=== PATIENT | male | born 1955 | race Caucasian/White ===

== ENCOUNTER 2016-10-30 00:10 | Inpatient (IN) | payer MEDICAID ==
[2016-10-30] MEDS ORDERED: ONDANSETRON DISINTEGRATING 4 MG TAB ONE ×2 (00:31→03:29)
[2016-10-30] MEDS ORDERED: ONDANSETRON DISINTEGRATING 4 MG TAB PO ONE ×2 (00:52→03:53)
--- NOTE | 2016-10-30 01:53 | EDPHY ---
H & P Stated Complaint: c/o R ankle/foot pain x 2 days - Medical/Surgical History Hx Asthma: No Hx Chronic Respiratory Disease: No Hx Diabetes: No Hx Cardiac Disease: No Hx Renal Disease: No Hx Cirrhosis: No Hx Alcoholism: No Hx HIV/AIDS: No Hx Splenectomy or Spleen Trauma: No Other PMH: homless 9 years, smoker, undiagnosed HTN, stroke with R sided weakness - Social History Smoking Status: Current every day smoker Time Seen by Provider: 10/30/16 00:18 HPI/ROS: Chief complaint: Right foot and ankle pain History of present illness: This is a 61-year-old male brought to the emergency department by EMS for evaluation of right foot and ankle pain. Patient was apparently found on the ground by bystanders in when asked if he was okay he states his foot and ankle hurt. My evaluation he reports he has had pain for the last few days. He denies precipitating factors such as trauma. He denies other associated signs or symptoms such as abnormal coolness or paresthesias in the foot. No other associated signs or symptoms including no fevers, no chest pain, no shortness of breath. (Bartolo Burch) - Physical Exam Exam: General: Alert, nontoxic Skin: No lesions noted to the right lower extremity consistent with trauma Musculoskeletal: Diffuse tenderness to the ankle and foot. The rest of his legs nontender. He is moving the lower extremity well. Vascular: DP and PT pulses 2 trace leave palpable bilaterally. There Doppler did and are present bilaterally. Neurologic: Sensation appears intact as patient reports he can feel when I test is sensation (Bartolo Burch) Constitutional: Initial Vital Signs Temperature (C) 35.6 C L 10/30/16 00:15 Blood Pressure 90/68 L 10/30/16 00:15 O2 Delivery Mode Nasal Cannula O2 (L/minute) 3 Allergies/Adverse Reactions: No Known Allergies Allergy (Verified 10/30/16 00:17) Home Medications: Medication Instructions Recorded Acetaminophen [Tylenol 325mg (*)] 650 mg PO Q4 PRN #0 tab 12/29/15 Aspirin [Aspirin 81mg (*)] 81 mg PO DAILY #0 tab.chew 12/29/15 Atorvastatin Calcium [Lipitor 20 20 mg PO DAILY #0 tab 12/29/15 mg (*)] amLODIPine BESYLATE [Norvasc 5 mg 5 mg PO DAILY #0 tab 12/29/15 (*)] Medical Decision Making ED Course/Re-evaluation: Patient discussed with my secondary supervising physician Dr. Solange Dean. Patient presents to the emergency department reporting right ankle and foot pain. The lower extremity is neurovascularly intact. X-rays appear unremarkable. Ultrasound is negative for DVT. Patient is discharged home. He is asked to follow up with a primary care doctor for recheck. Return precautions are given. Patient voiced understanding and agreement with plan. ( Bartolo Burch) I assumed care of this patient from Bartolo Burch at 2:00 a.m.. Although the patient had been set up for discharge, he was noted to be mildly hypoxic and have a cough. A chest x-ray was performed and a right-sided infiltrate is visualized. At the time of my examination he is awake and alert with a loose cough. He had an episode of emesis during my interview. He reports having a recent cough. He is a smoker and states that he smokes at least 2 cigarettes daily. He does not take any medications. He has not been feeling short of breath and has not been aware of fever. [facility] He will be admitted to the hospital for supplemental oxygen, antibiotics, and further treatments as needed. DuoNeb is being administered in the emergency department at the time of this dictation. After my review of his chest x-ray and identification of right-sided pneumonia, an IV was started and blood work was drawn. His initial lactate is noted to be 6.6. This places him in the category of severe sepsis. As mentioned, this patient presented because of lower extremity pain. He had a thorough evaluation of that pain and it was expected that he would be discharged from the emergency department. However he was subsequently noted to be hypoxic and this resulted in a respiratory evaluation. This sequence of events cause some delay in the recognition of his pneumonia and severe sepsis. At 4:45 a.m. he has received over 1 L of normal saline. Repeat blood pressure is 129/90. He remains awake and alert. Repeat examination of his lungs shows them to have distant breath sounds with faint rales in the right base. No wheezes. Heart is regular. Femoral and dorsalis pedis pulses are 2+ bilaterally. Capillary refill is normal. Skin is warm and dry. Repeat lactate is 6.6. This was drawn before his IV fluid bolus had been completed. While in the emergency department he responded well to a DuoNeb, supplemental oxygen via nasal cannula, and IV fluids. (Solange Dean) Differential Diagnosis: Included but not limited to contusion, sprain or strain, bony fracture, joint dislocation, cellulitis, DVT, arterial occlusion (Bartolo Burch) - Data Points Laboratory Results: Laboratory Results 10/30/16 03:35 10/30/16 03:35 10/30/16 10/30/16 10/30/16 03:50 03:50 03:35 WBC RBC Hgb Hct MCV MCH MCHC RDW Plt Count MPV Neut % (Auto) Lymph % (Auto) [place] % (Auto) Eos % (Auto) Baso % (Auto) Nucleat RBC Rel Count Absolute Neuts (auto) Absolute Lymphs (auto) Absolute Monos (auto) Absolute Eos (auto) Absolute Basos (auto) Absolute Nucleated RBC Immature Gran % Immature Gran # PT 16.9 SEC H SEC (12.0-15.0) INR 1.37 H (0.83-1.16) APTT 28.6 SEC SEC (23.0-38.0) VBG Lactic Acid 6.6 mmol/L H mmol/L (0.7-2.1) Sodium Potassium Chloride Carbon Dioxide Anion Gap BUN Creatinine Estimated GFR Glucose Calcium Total Bilirubin Influenza Typ A,B (DFA) NEGATIVE FOR FLU (NEGATIVE) 10/30/16 10/30/16 03:35 03:35 WBC 13.20 10^3/uL H 10^3/uL (3.80-9.50) RBC 5.62 10^6/uL 10^6/uL (4.40-6.38) Hgb 16.9 g/dL g/dL (13.7-17.5) Hct 50.6 % % (40.0-51.0) MCV 90.0 fL fL (81.5-99.8) MCH 30.1 pg pg (27.9-34.1) MCHC 33.4 g/dL g/dL (32.4-36.7) RDW 13.1 % % (11.5-15.2) Plt Count 169 10^3/uL 10^3/uL (150-400) MPV 9.1 fL fL (8.7-11.7) Neut % (Auto) 86.9 % H % (39.3-74.2) Lymph % (Auto) 6.3 % L % (15.0-45.0) [place] % (Auto) 6.0 % % (4.5-13.0) Eos % (Auto) 0.1 % L % (0.6-7.6) Baso % (Auto) 0.2 % L % (0.3-1.7) Nucleat RBC Rel Count 0.0 % % (0.0-0.2) Absolute Neuts (auto) 11.48 10^3/uL H 10^3/uL (1.70-6.50) Absolute Lymphs (auto) 0.83 10^3/uL L 10^3/uL (1.00-3.00) Absolute Monos (auto) 0.79 10^3/uL 10^3/uL (0.30-0.80) Absolute Eos (auto) 0.01 10^3/uL L 10^3/uL (0.03-0.40) Absolute Basos (auto) 0.02 10^3/uL 10^3/uL (0.02-0.10) Absolute Nucleated RBC 0.00 10^3/uL 10^3/uL (0-0.01) Immature Gran % 0.5 % % (0.0-1.1) Immature Gran # 0.07 10^3/uL 10^3/uL (0.00-0.10) PT INR APTT VBG Lactic Acid Sodium 141 mEq/L mEq/L (134-144) Potassium 3.9 mEq/L mEq/L (3.5-5.2) Chloride 98 mEq/L mEq/L (97-110) Carbon Dioxide 26 mEq/l mEq/l (22-31) Anion Gap 17 mEq/L H mEq/L (8-16) BUN 34 mg/dL H mg/dL (7-23) Creatinine 1.3 mg/dL mg/dL (0.7-1.3) Estimated GFR 57 Glucose 192 mg/dL H mg/dL (70-100) Calcium 9.6 mg/dL mg/dL (8.5-10.4) Total Bilirubin 1.6 mg/dL H mg/dL (0.1-1.4) Influenza Typ A,B (DFA) Medications Given: Discontinued Medications Albuterol/Ipratropium (Duoneb) 3 ml IH EDNOW ONE Stop: 10/30/16 03:32 Last Admin: 10/30/16 03:57 Dose: 3 ml Sodium Chloride (Ns) 1,000 mls @ 0 mls/hr IV ONCE ONE PRN Reason: Wide Open Stop: 10/30/16 03:32 Last Admin: 10/30/16 03:50 Dose: 1,000 mls Azithromycin 500 mg/ Dextrose 255 mls @ 255 mls/hr IV EDNOW ONE PRN Reason: Protocol Stop: 10/30/16 05:03 Last Admin: 10/30/16 05:30 Dose: 255 mls Ceftriaxone Sodium/Dextrose (Rocephin 1 Gm (Premix)) 50 mls @ 100 mls/hr IV EDNOW ONE PRN Reason: Protocol Stop: 10/30/16 04:33 Last Admin: 10/30/16 04:45 Dose: 50 mls Sodium Chloride (Ns) 1,800 mls @ 3,600 mls/hr 30 ml/kg infuse over 30 min ( 1800 ml) IV EDNOW ONE Stop: 10/30/16 05:14 Last Admin: 10/30/16 03:50 Dose: 1,800 mls Ondansetron HCl (Zofran Odt) 4 mg PO EDNOW ONE Stop: 10/30/16 00:53 Last Admin: 10/30/16 00:35 Dose: 4 mg Ondansetron HCl (Zofran Odt) 4 mg PO EDNOW ONE Stop: 10/30/16 03:54 Last Admin: 10/30/16 03:45 Dose: 4 mg Departure - Departure Disposition: [facility] Inpatient Acute Clinical Impression: Right ankle pain Qualifiers: Chronicity: acute Qualified Code(s): M25.571 - Pain in right ankle and joints of right foot Pneumonia Qualifiers: Pneumonia type: due to unspecified organism Laterality: right Lung location: lower lobe of lung Qualified Code(s): J18.1 - Lobar pneumonia, unspecified organism Condition: Good
[2016-10-30] MEDS ORDERED: IPRATROPIUM/ALBUTEROL 3 ML DEYVIAL IH ONE (03:31)
[2016-10-30] MEDS ORDERED: NS 1,000 ML IV ONE (03:31)
[2016-10-30 03:46] LABS: % IMMATURE GRANULYOCYTES 0.5 % (0.0-1.1); ABSOLUTE IMMATURE GRANULOCYTES 0.07 10^3/uL (0.00-0.10); ADD DIFF? NO; ADD MORPH? NO; ADD SCAN? NO; ATYPICAL LYMPHOCYTE FLAG 10 (0-99); FRAGMENT RBC FLAG 0 (0-99); HEMATOCRIT 50.6 % (40.0-51.0); HEMOGLOBIN 16.9 g/dL (13.7-17.5); LEFT SHIFT FLG 0 (0-99); LIPEMIA HEMOLYSIS FLAG 80 (0-99); MEAN CELL HEMOGLOBIN 30.1 pg (27.9-34.1); MEAN CELL HEMOGLOBIN CONCENTR. 33.4 g/dL (32.4-36.7); MEAN PLATELET VOLUME 9.1 fL (8.7-11.7); PLATELET CLUMPS FLAG 0 (0-99); PLATELET COUNT 169 10^3/uL (150-400); RED BLOOD CELL COUNT 5.62 10^6/uL (4.40-6.38); RED CELL DISTRIBUTION WIDTH 13.1 % (11.5-15.2)
[2016-10-30 03:55] LABS: INR 1.37 (0.83-1.16); PROTIME(PATIENT) 16.9 SEC (12.0-15.0)
[2016-10-30 03:56] LABS: ANION GAP 17 mEq/L (8-16); APTT 28.6 SEC (23.0-38.0); BILIRUBIN,TOTAL 1.6 mg/dL (0.1-1.4); CALCIUM 9.6 mg/dL (8.5-10.4); CARBON DIOXIDE 26 mEq/l (22-31); CHLORIDE 98 mEq/L (97-110); CREATININE 1.3 mg/dL (0.7-1.3); GLOMERULAR FILTRATION RATE 57; GLUCOSE 192 mg/dL (70-100); POTASSIUM 3.9 mEq/L (3.5-5.2); SODIUM 141 mEq/L (134-144)
[2016-10-30] MEDS ORDERED: AZITHROMYCIN IV 500 MG in D5W 250 ML IV ONE (04:04)
[2016-10-30] MEDS ORDERED: ALBUTEROL 3 ML DEYVIAL IH PRN (04:14)
[2016-10-30] MEDS ORDERED: ONDANSETRON 4 MG/2 ML VIAL IVP PRN (04:14)
[2016-10-30] MEDS ORDERED: ONDANSETRON DISINTEGRATING 4 MG TAB PO PRN (04:14)
[2016-10-30] MEDS ORDERED: ACETAMINOPHEN 325 MG TAB PO PRN (04:14)
--- NOTE | 2016-10-30 04:29 | PDGENHP ---
History and Physical - Chief Complaint R foot pain - History of Present Illness Patient is a 61 year old, homeless male with a history of CVA with residual R sided paresis, active tobacco use, who presented to the ED initially with R lower extremity/foot pain. Apparently, EMS was called for him after he was found on the ground in the [facility], complaining of R foot pain, which is why he was brought to the ED. In addition, he also reports shortness of breath, productive cough over the past 4-6 days, associated with chills. He also reports 1-2 episodes of vomiting and diarrhea, nonbloody/nonbilious. He denies any chest pain, headache, dizziness or loss of consciousness. On arrival to the ED, patient was slightly hypothermic, borderline hypotensive and slightly hypoxic on room air. Work up for his foot pain, including RLE doppler and x-ray were unremarkable. Given his hypoxia, cxr and labs were then also ordered. CXR revealed RLL/RML infiltrate. Labs showed leukocytosis, elevated lactic acid and elevated bun/cr. Sepsis protocol was initiated at this time, he was cultured, given IVF bolus and initiated on IV antibiotics. History Information - Allergies/Home Medication List Allergies/Adverse Reactions: No Known Allergies Allergy (Verified 10/30/16 00:17) I have personally reviewed and updated: family history, medical history, social history, surgical history - Past Medical History Additional medical history: CVA with residual partial R hemiparesis - Surgical History Additional surgical history: R elbow surgery - Family History Positive for: non-pertinent - Social History Smoking Status: Current every day smoker (5 cigarettes/day, x 40 years) Alcohol Use: None Drug Use: None Additional social history: Patient is homeless, does not use long term system. Originally from [place], living in [place] for > 40 years. Review of Systems ROS: 10pt was reviewed & negative except for what was stated in HPI & below Physical Exam Temp Pulse Resp BP Pulse Ox 36 C 99 20 107/80 94 10/30/16 02:52 10/30/16 04:00 10/30/16 04:00 10/30/16 04:00 10/30/16 04:00 Constitutional: not in pain, chronically ill appearing, unkempt, cachectic Eyes: PERRL, anicteric sclera, EOMI Ears, Nose, Mouth, Throat: hearing normal, ears appear normal, no oral mucosal ulcers, dry mucous membranes Cardiovascular: regular rate and rhythym, no murmur, rub, or gallop, pulses symmetric bilaterally, No JVD, No edema Peripheral Pulses: 2+: dorsalis-pedis (R), dorsalis-pedis (L) Respiratory: no respiratory distress, no rales or rhonchi, bronchial breath sounds (in R lung barker) Gastrointestinal: normoactive bowel sounds, soft, non-tender abdomen, no palpable masses, No guarding, No rebound, No distension Genitourinary: no bladder fullness, no bladder tenderness Skin: warm, normal color, no rashes or abrasions, no fluctuance, no induration, No mottled Musculoskeletal: no muscle tenderness, no joint effusions Neurologic: AAOx3, sensation intact bilaterally, other (RUE 0/5 strenght; RLE: 3 /5 strength ) Psychiatric: interacting appropriately, not anxious, not encephalopathic, thought process linear Lab Data & Imaging Review 10/30/16 03:35 10/30/16 03:35 WBC 13.20 10^3/uL (3.80-9.50) H 10/30/16 03:35 RBC 5.62 10^6/uL (4.40-6.38) 10/30/16 03:35 Hgb 16.9 g/dL (13.7-17.5) 10/30/16 03:35 Hct 50.6 % (40.0-51.0) 10/30/16 03:35 MCV 90.0 fL (81.5-99.8) 10/30/16 03:35 MCH 30.1 pg (27.9-34.1) 10/30/16 03:35 MCHC 33.4 g/dL (32.4-36.7) 10/30/16 03:35 RDW 13.1 % (11.5-15.2) 10/30/16 03:35 Plt Count 169 10^3/uL (150-400) 10/30/16 03:35 MPV 9.1 fL (8.7-11.7) 10/30/16 03:35 Neut % (Auto) 86.9 % (39.3-74.2) H 10/30/16 03:35 Lymph % (Auto) 6.3 % (15.0-45.0) L 10/30/16 03:35 [place] % (Auto) 6.0 % (4.5-13.0) 10/30/16 03:35 Eos % (Auto) 0.1 % (0.6-7.6) L 10/30/16 03:35 Baso % (Auto) 0.2 % (0.3-1.7) L 10/30/16 03:35 Nucleat RBC Rel Count 0.0 % (0.0-0.2) 10/30/16 03:35 Absolute Neuts (auto) 11.48 10^3/uL (1.70-6.50) H 10/30/16 03:35 Absolute Lymphs (auto) 0.83 10^3/uL (1.00-3.00) L 10/30/16 03:35 Absolute Monos (auto) 0.79 10^3/uL (0.30-0.80) 10/30/16 03:35 Absolute Eos (auto) 0.01 10^3/uL (0.03-0.40) L 10/30/16 03:35 Absolute Basos (auto) 0.02 10^3/uL (0.02-0.10) 10/30/16 03:35 Absolute Nucleated RBC 0.00 10^3/uL (0-0.01) 10/30/16 03:35 Immature Gran % 0.5 % (0.0-1.1) 10/30/16 03:35 Immature Gran # 0.07 10^3/uL (0.00-0.10) 10/30/16 03:35 PT 16.9 SEC (12.0-15.0) H 10/30/16 03:35 INR 1.37 (0.83-1.16) H 10/30/16 03:35 APTT 28.6 SEC (23.0-38.0) 10/30/16 03:35 VBG Lactic Acid 6.6 mmol/L (0.7-2.1) H 10/30/16 03:50 Sodium 141 mEq/L (134-144) 10/30/16 03:35 Potassium 3.9 mEq/L (3.5-5.2) 10/30/16 03:35 Chloride 98 mEq/L (97-110) 10/30/16 03:35 Carbon Dioxide 26 mEq/l (22-31) 10/30/16 03:35 Anion Gap 17 mEq/L (8-16) H 10/30/16 03:35 BUN 34 mg/dL (7-23) H 10/30/16 03:35 Creatinine 1.3 mg/dL (0.7-1.3) 10/30/16 03:35 Estimated GFR 57 10/30/16 03:35 Glucose 192 mg/dL (70-100) H 10/30/16 03:35 Calcium 9.6 mg/dL (8.5-10.4) 10/30/16 03:35 Total Bilirubin 1.6 mg/dL (0.1-1.4) H 10/30/16 03:35 Influenza Typ A,B (DFA) NEGATIVE FOR FLU (NEGATIVE) 10/30/16 03:50 Visualized and Interpreted Chest x-ray results: Yes Chest X-Ray results: infiltrate (RM and RL lobe) Visualized and Interpreted imaging results: Yes Interpretation: RLE x-ray: no obvious fracture. RLE doppler: no dvt Assessment & Plan Assessment: Patient is a 61 year old homeless male with prior history of CVA with residual R hemiparesis, presented to the ED with complaint of RLE pain. ED evaluation also reveals septic shock secondary to acute bacterial pneumonia. Plan: # septic shock secondary to community acquired pneumonia On presentation, patient was hypothermic, with leukocytosis, with cxr revealing infiltrate concerning for pneumonia. Given lactic acid of 6.6, elevated bilirubin greater than 1.5, patient meets criteria for septic shock. He was initiated on the 30cc/kg IVF bolus, was cultured and initiated on ceftriaxone and azithromycin for coverage of community acquired pneumonia. Rapid flu swab is negative and UA is also pending. Will repeat lactic acid after initiate fluid bolus. # acute hypoxic respiratory failure Likely related to acute pneumonia, described above. Responded well to supplemental O2 via nasal cannula. Patient also has a long standing smoking history, so will provide nebs prn. # R lower extremity pain Patient denies trauma to the extremity, reports chronic paresis secondary to a previous CVA. X-ray and doppler were negative for any acute pathology, patient has strong peripheral pulses and sensation is intact. Will cont to monitor and provide prn pain relief. # dispo: admit to inpatient service for > 2 [place] stay # gen: regular diet DVT ppx: lovenox Full code
[2016-10-30] MEDS ORDERED: NS 1,800 ML IV ONE (04:45)
[2016-10-30 04:59] LABS: LACGHOST ORDER
--- NOTE | 2016-10-30 05:54 | CPEKG ---
Heart Rate: 99 RR Interval: 606 P-R Interval: 144 QRSD Interval: 88 QT Interval: 388 QTC Interval: 498 P [place]: 83 QRS [place]: 84 T Wave [place]: 63 EKG Severity - BORDERLINE ECG - EKG Impression: SINUS RHYTHM EKG Impression: BORDERLINE PROLONGED QT INTERVAL Electronically Signed By: Solange Dean 30-Oct-2016 07:01:03
[2016-10-30] MEDS: IPRATROPIUM/ALBUTEROL 3 ML DEYVIAL IH SCH ×4 (06:27→20:17)
[2016-10-30] MEDS: NS 1,000 ML IV SCH ×2 (07:37→16:51)
[2016-10-30] MEDS: ENOXAPARIN 40 MG/0.4 ML SYR SC SCH (09:28)
--- NOTE | 2016-10-30 12:09 | HOSPPROG ---
Hospitalist Progress Note Assessment/Plan: Patient is a 61 year old homeless male with prior history of CVA with residual R hemiparesis, presented to the ED with complaint of RLE pain. ED evaluation also reveals septic shock secondary to acute bacterial pneumonia. Plan: # septic shock secondary to community acquired pneumonia On presentation, patient was hypothermic, with leukocytosis, with cxr revealing infiltrate concerning for pneumonia. Given lactic acid of 6.6, elevated bilirubin greater than 1.5, patient meets criteria for septic shock. He was initiated on the 30cc/kg IVF bolus, was cultured and initiated on ceftriaxone and azithromycin for coverage of community acquired pneumonia. Rapid flu swab is negative and UA is also pending. Will repeat lactic acid after initiate fluid bolus. # acute hypoxic respiratory failure Likely related to acute pneumonia, described above. Responded well to supplemental O2 via nasal cannula. Patient also has a long standing smoking history, so will provide nebs prn. # R lower extremity pain Patient denies trauma to the extremity, reports chronic paresis secondary to a previous CVA. X-ray and doppler were negative for any acute pathology, patient has strong peripheral pulses and sensation is intact. Will cont to monitor and provide prn pain relief. # dispo: admit to inpatient service for > 2 [place] stay # gen: regular diet DVT ppx: lovenox Full code Subjective: Still having some discomfort. No other issues. Objective: Vital Signs Temp Pulse Resp BP Pulse Ox 36.9 C 91 18 96/72 L 93 10/30/16 11:24 10/30/16 11:24 10/30/16 11:24 10/30/16 11:24 10/30/16 11:24 10/29/16 10/30/16 10/31/16 05:59 05:59 05:59 Intake Total 2049 Output Total 180 Balance 2049 -180 PT 16.9 SEC (12.0-15.0) H 10/30/16 03:35 INR 1.37 (0.83-1.16) H 10/30/16 03:35 - Physical Exam Constitutional: no apparent distress, chronically ill appearing, unkempt Ears, Nose, Mouth, Throat: hearing normal, ears appear normal Cardiovascular: No JVD, No tachycardia Respiratory: no respiratory distress Gastrointestinal: No tenderness, No ascites Skin: warm, normal color Musculoskeletal: no joint effusions, generalized weakness Neurologic: AAOx3 Psychiatric: not anxious, not encephalopathic ICD10 Worksheet Patient Problems: Problems Problem Status Onset Stroke Acute Right ankle pain Acute Pneumonia Acute
[2016-10-30 12:12] LABS: COLOR ORANGE; LEUKOCYTE ESTERASE,URINE NEGATIVE (NEGATIVE); NITRITE,URINE NEGATIVE (NEGATIVE)
[2016-10-30 12:14] LABS: BACTERIA TRACE /hpf (NONE SEEN); HYALINE CASTS 25-50 /lpf (0-1); MUCUS TRACE /lpf (NONE-1+)
[2016-10-31 04:41] LABS: % IMMATURE GRANULYOCYTES 0.5 % (0.0-1.1); ABSOLUTE IMMATURE GRANULOCYTES 0.05 10^3/uL (0.00-0.10); ADD DIFF? NO; ADD MORPH? NO; ADD SCAN? NO; ATYPICAL LYMPHOCYTE FLAG 0 (0-99); FRAGMENT RBC FLAG 0 (0-99); HEMATOCRIT 42.6 % (40.0-51.0); HEMOGLOBIN 14.6 g/dL (13.7-17.5); LEFT SHIFT FLG 0 (0-99); LIPEMIA HEMOLYSIS FLAG 90 (0-99); MEAN CELL HEMOGLOBIN 31.1 pg (27.9-34.1); MEAN CELL HEMOGLOBIN CONCENTR. 34.3 g/dL (32.4-36.7); MEAN CELL VOLUME 90.8 fL (81.5-99.8); MEAN PLATELET VOLUME 9.9 fL (8.7-11.7); PLATELET CLUMPS FLAG 10 (0-99); PLATELET COUNT 139 10^3/uL (150-400); RED BLOOD CELL COUNT 4.69 10^6/uL (4.40-6.38); RED CELL DISTRIBUTION WIDTH 13.4 % (11.5-15.2)
[2016-10-31 05:00] LABS: ALANINE AMINOTRANSFERASE 250 IU/L (21-72); ALBUMIN 2.5 g/dL (3.5-5.0); ALKALINE PHOSPHATASE 136 IU/L (38-126); ANION GAP 7 mEq/L (8-16); ASPARTATE AMINOTRANSFERASE 178 IU/L (17-59); BILIRUBIN,TOTAL 0.8 mg/dL (0.1-1.4); BILIRUBIN-CONJUGATED 0.4 mg/dL (0.0-0.5); BILIRUBIN-UNCONJUGATED 0.4 mg/dL (0.0-1.1); CARBON DIOXIDE 22 mEq/l (22-31); CHLORIDE 108 mEq/L (97-110); CREATININE 0.7 mg/dL (0.7-1.3); GLOMERULAR FILTRATION RATE > 60; GLUCOSE 108 mg/dL (70-100); SODIUM 137 mEq/L (134-144); TOTAL PROTEIN 5.2 g/dL (6.3-8.2)
[2016-10-31] MEDS: IPRATROPIUM/ALBUTEROL 3 ML DEYVIAL IH SCH ×4 (05:22→21:03)
[2016-10-31] MEDS: NS 1,000 ML IV SCH ×2 (05:53→16:10)
[2016-10-31] MEDS: AZITHROMYCIN IV 500 MG in D5W 250 ML IV SCH (08:19)
[2016-10-31] MEDS ORDERED: AZITHROMYCIN IV 500 MG in D5W 250 ML IV SCH (09:00)
[2016-10-31] MEDS: ENOXAPARIN 40 MG/0.4 ML SYR SC SCH (10:11)
--- NOTE | 2016-10-31 13:29 | HOSPPROG ---
Hospitalist Progress Note Assessment/Plan: Patient is a 61 year old homeless male with prior history of CVA with residual R hemiparesis, presented to the ED with complaint of RLE pain. ED evaluation also reveals septic shock secondary to acute bacterial pneumonia. Plan: # septic shock secondary to community acquired pneumonia -hypothermic, with leukocytosis, with cxr revealing infiltrate concerning for pneumonia. Given lactic acid of 6.6, elevated bilirubin greater than 1.5, patient meets criteria for septic shock. He was initiated on the 30cc/kg IVF bolus, was cultured and initiated on ceftriaxone and azithromycin for coverage of community acquired pneumonia. Rapid flu swab is negative and UA is neg. Will repeat lactic acid after initiate fluid bolus. #Positive BC staph coag anticipate contaminate but will follow only one bottle so far # acute hypoxic respiratory failure Likely related to acute pneumonia, described above. Responded well to supplemental O2 via nasal cannula. Patient also has a long standing smoking history, so will provide nebs prn. #Elevated LFT recheck in am add hep panel # R lower extremity pain Patient denies trauma to the extremity, reports chronic paresis secondary to a previous CVA. X-ray and doppler were negative for any acute pathology, patient has strong peripheral pulses and sensation is intact. Will cont to monitor and provide prn pain relief. obtain MRI of brain to assure that past CVA has not progressed. consider runoff study if MRI normal # Homeless pt agreeable to rehab reviewed with RN and CM # dispo: unclear will need Rehab cont PT/OT # gen: regular diet DVT ppx: lovenox Full code Subjective: C/O right foot pain. Feeling better then yesterday. No other specific issues. Objective: Vital Signs Temp Pulse Resp BP Pulse Ox 36.4 C 100 18 106/63 95 10/31/16 11:22 10/31/16 11:22 10/31/16 11:22 10/31/16 11:22 10/31/16 11:22 Microbiology 10/31/16 05:07 - Final Sputum, Expectorated Laboratory Results 10/31/16 04:25 10/31/16 04:25 10/30/16 10/31/16 11/01/16 05:59 05:59 05:59 Intake Total 2049 1785 200 Output Total 755 200 Balance 2049 1030 0 PT 16.9 SEC (12.0-15.0) H 10/30/16 03:35 INR 1.37 (0.83-1.16) H 10/30/16 03:35 - Physical Exam Constitutional: chronically ill appearing, unkempt, cachectic Eyes: PERRL, anicteric sclera, EOMI Ears, Nose, Mouth, Throat: moist mucous membranes, hearing normal, ears appear normal Cardiovascular: tachycardia, No JVD, No edema Respiratory: no respiratory distress, reduced air movement, expiratory wheeze Gastrointestinal: No tenderness, No ascites, No guarding Skin: warm, normal color, No erythema Musculoskeletal: pain with ROM, muscular tenderness, generalized weakness Neurologic: AAOx3 Psychiatric: not anxious, not encephalopathic, thought process linear ICD10 Worksheet Patient Problems: Problems Problem Status Onset Stroke Acute Right ankle pain Acute Pneumonia Acute
[2016-10-31] MEDS: HYDROCODONE/APAP 5/325 TAB PO PRN (19:57)
[2016-11-01] MEDS: NS 1,000 ML IV SCH ×2 (04:37→18:24)
[2016-11-01] MEDS: HYDROCODONE/APAP 5/325 TAB PO PRN (04:37)
[2016-11-01 05:16] LABS: ALBUMIN 2.5 g/dL (3.5-5.0); BILIRUBIN,TOTAL 1.1 mg/dL (0.1-1.4); BILIRUBIN-CONJUGATED 0.4 mg/dL (0.0-0.5); BILIRUBIN-UNCONJUGATED 0.7 mg/dL (0.0-1.1); TOTAL PROTEIN 5.2 g/dL (6.3-8.2)
[2016-11-01] MEDS: IPRATROPIUM/ALBUTEROL 3 ML DEYVIAL IH SCH ×4 (06:03→20:59)
[2016-11-01] MEDS: AZITHROMYCIN IV 500 MG in D5W 250 ML IV SCH (08:16)
[2016-11-01] MEDS: ENOXAPARIN 40 MG/0.4 ML SYR SC SCH (08:17)
--- NOTE | 2016-11-01 11:16 | HOSPPROG ---
Hospitalist Progress Note Assessment/Plan: Patient is a 61 year old homeless male with prior history of CVA with residual R hemiparesis, presented to the ED with complaint of RLE pain. ED evaluation also reveals septic shock secondary to acute bacterial pneumonia. Plan: # septic shock secondary to community acquired pneumonia -hypothermic, with leukocytosis, with cxr revealing infiltrate concerning for pneumonia. Given lactic acid of 6.6, elevated bilirubin greater than 1.5, patient meets criteria for septic shock. He was initiated on the 30cc/kg IVF bolus, was cultured and initiated on ceftriaxone and azithromycin for coverage of community acquired pneumonia. Rapid flu swab is negative and UA is neg. lactic acid normal. #Positive BC staph coag contaminate # acute hypoxic respiratory failure Likely related to acute pneumonia, described above. Responded well to supplemental O2 via nasal cannula. Patient also has a long standing smoking history, so will provide nebs prn. #Elevated LFT stable, follow hep panel negative # R lower extremity pain Patient denies trauma to the extremity, reports chronic paresis secondary to a previous CVA. X-ray and doppler were negative for any acute pathology, patient has strong peripheral pulses and sensation is intact. Will cont to monitor and provide prn pain relief. MRI of brain, past CVA has not progressed. PT eval # Homeless pt agreeable to rehab reviewed with RN and CM # dispo: unclear will need Rehab cont PT/OT # gen: regular diet DVT ppx: lovenox Full code Subjective: Feeling ok. Still having right leg discomfort. No other specific issues. Objective: Vital Signs Temp Pulse Resp BP Pulse Ox 37.1 C 98 18 144/91 H 92 11/01/16 07:43 11/01/16 10:41 11/01/16 10:41 11/01/16 07:43 11/01/16 10:41 Microbiology 10/31/16 05:07 - Final Sputum, Expectorated Laboratory Results 10/31/16 04:25 10/31/16 04:25 10/31/16 11/01/16 11/02/16 05:59 05:59 05:59 Intake Total 1785 540 Output Total 755 550 Balance 1030 -10 PT 16.9 SEC (12.0-15.0) H 10/30/16 03:35 INR 1.37 (0.83-1.16) H 10/30/16 03:35 - Physical Exam Constitutional: chronically ill appearing, unkempt Eyes: PERRL, anicteric sclera Ears, Nose, Mouth, Throat: moist mucous membranes, No oral thrush Cardiovascular: No JVD, No edema Respiratory: no respiratory distress, rhonchi Gastrointestinal: No tenderness, No ascites Skin: warm, normal color Musculoskeletal: muscular tenderness, abnormal gait, generalized weakness Neurologic: AAOx3 Psychiatric: not anxious, not encephalopathic ICD10 Worksheet Patient Problems: Problems Problem Status Onset Stroke Acute Right ankle pain Acute Pneumonia Acute
[2016-11-02] MEDS: IPRATROPIUM/ALBUTEROL 3 ML DEYVIAL IH SCH ×4 (04:06→20:57)
[2016-11-02] MEDS: ENOXAPARIN 40 MG/0.4 ML SYR SC SCH (08:52)
[2016-11-02] MEDS: AZITHROMYCIN IV 500 MG in D5W 250 ML IV SCH (08:52)
--- NOTE | 2016-11-02 08:56 | HOSPPROG ---
Hospitalist Progress Note Assessment/Plan: Patient is a 61 year old homeless male with prior history of CVA with residual R hemiparesis, presented to the ED with complaint of RLE pain. ED evaluation also reveals septic shock secondary to acute bacterial pneumonia. Today is my first encounter with the patient, chart reviewed. # septic shock secondary to community acquired pneumonia reviewed chest xray with radiologist/ concern for aspiration will ask ST to further evaluate on ceftriaxone and azithro was hypothermic/elevated lactic acid level on admission (since resolved) #Left lung pulmonary nodules/non calcified needs a CT scan of his chest when improved reviewed this with the patientient #Positive BC staph coag contaminate # acute hypoxic respiratory failure multifactorial/ due to pna, hx of smoking #Elevated LFT hepatitis panel negative repeat LFT's in a.m. # R lower extremity pain chronic paresis xray and doppler show nothing acute #Nicotine dependence smokes approximately 5-10 cigarettes/day #Homelessness from the [facility] has no family locally CM working on placement #Dispo: pending/ needs aggressive pulm rehab, needs further eval for aspiration by ST, repeat labs in a.m. Subjective: Gabe feels poorly, very short of breath. Objective: Vital Signs Temp Pulse Resp BP Pulse Ox 36.9 C 100 24 H 116/74 93 11/01/16 23:25 11/02/16 04:07 11/02/16 04:07 11/01/16 23:25 11/02/16 04:07 Microbiology 10/31/16 05:07 - Final Sputum, Expectorated Laboratory Results 10/31/16 04:25 10/31/16 04:25 11/01/16 11/02/16 11/03/16 05:59 05:59 05:59 Intake Total 540 1402.1 250 Output Total 550 1325 200 Balance -10 77.1 50 PT 16.9 SEC (12.0-15.0) H 10/30/16 03:35 INR 1.37 (0.83-1.16) H 10/30/16 03:35 - Physical Exam Constitutional: chronically ill appearing, unkempt, other (thin) Eyes: PERRL Ears, Nose, Mouth, Throat: hearing normal Cardiovascular: regular rate and rhythym Respiratory: no respiratory distress, reduced air movement (right middle lobe down/ diff to hear good air movement), No respiratory distress Gastrointestinal: normoactive bowel sounds Skin: warm Musculoskeletal: no muscle tenderness Neurologic: AAOx3 Psychiatric: interacting appropriately ICD10 Worksheet Patient Problems: Problems Problem Status Onset Pneumonia Acute Right ankle pain Acute Stroke Acute
[2016-11-02] MEDS: NS 1,000 ML IV SCH ×2 (14:19→21:07)
[2016-11-02] MEDS: HYDROCODONE/APAP 5/325 TAB PO PRN (19:40)
[2016-11-02] MEDS: guaiFENesin 600 MG TAB.ER PO SCH (19:40)
[2016-11-03] MEDS: HYDROCODONE/APAP 5/325 TAB PO PRN ×2 (04:56→14:36)
[2016-11-03] MEDS: NS 1,000 ML IV SCH ×2 (04:56→18:23)
[2016-11-03 05:34] LABS: % IMMATURE GRANULYOCYTES 0.6 % (0.0-1.1); ABSOLUTE IMMATURE GRANULOCYTES 0.06 10^3/uL (0.00-0.10); ADD DIFF? NO; ADD MORPH? NO; ADD SCAN? NO; ATYPICAL LYMPHOCYTE FLAG 0 (0-99); FRAGMENT RBC FLAG 0 (0-99); HEMATOCRIT 36.7 % (40.0-51.0); HEMOGLOBIN 12.9 g/dL (13.7-17.5); LEFT SHIFT FLG 10 (0-99); LIPEMIA HEMOLYSIS FLAG 90 (0-99); MEAN CELL HEMOGLOBIN 30.9 pg (27.9-34.1); MEAN CELL HEMOGLOBIN CONCENTR. 35.1 g/dL (32.4-36.7); MEAN CELL VOLUME 87.8 fL (81.5-99.8); MEAN PLATELET VOLUME 9.8 fL (8.7-11.7); PLATELET CLUMPS FLAG 0 (0-99); PLATELET COUNT 179 10^3/uL (150-400); RED BLOOD CELL COUNT 4.18 10^6/uL (4.40-6.38); RED CELL DISTRIBUTION WIDTH 13.2 % (11.5-15.2)
[2016-11-03 05:43] LABS: ALANINE AMINOTRANSFERASE 189 IU/L (21-72); ALBUMIN 2.1 g/dL (3.5-5.0); ALKALINE PHOSPHATASE 123 IU/L (38-126); ANION GAP 5 mEq/L (8-16); ASPARTATE AMINOTRANSFERASE 83 IU/L (17-59); BILIRUBIN-CONJUGATED 0.6 mg/dL (0.0-0.5); BILIRUBIN-UNCONJUGATED 0.4 mg/dL (0.0-1.1); CALCIUM 7.3 mg/dL (8.5-10.4); CARBON DIOXIDE 22 mEq/l (22-31); CHLORIDE 105 mEq/L (97-110); CREATININE 0.6 mg/dL (0.7-1.3); GLOMERULAR FILTRATION RATE > 60; GLUCOSE 83 mg/dL (70-100); POTASSIUM 3.9 mEq/L (3.5-5.2); SODIUM 132 mEq/L (134-144); TOTAL PROTEIN 4.7 g/dL (6.3-8.2)
[2016-11-03] MEDS: IPRATROPIUM/ALBUTEROL 3 ML DEYVIAL IH SCH ×4 (05:49→21:33)
[2016-11-03] MEDS: ENOXAPARIN 40 MG/0.4 ML SYR SC SCH (08:15)
[2016-11-03] MEDS: AZITHROMYCIN IV 500 MG in D5W 250 ML IV SCH (08:16)
[2016-11-03] MEDS: guaiFENesin 600 MG TAB.ER PO SCH ×2 (08:16→21:24)
--- NOTE | 2016-11-03 12:55 | HOSPPROG ---
Hospitalist Progress Note Assessment/Plan: Patient is a 61 year old homeless male with prior history of CVA with residual R hemiparesis, presented to the ED with complaint of RLE pain. ED evaluation also reveals septic shock secondary to acute bacterial pneumonia. # septic shock secondary to community acquired pneumonia reviewed chest xray with radiologist/ concern for aspiration had video swallow evaluation that was stable on ceftriaxone /dc azithro was hypothermic/elevated lactic acid level on admission (since resolved) much better today/ requiring less oxygen #Left lung pulmonary nodules/non calcified needs a CT scan of his chest when improved reviewed this with the patient # right sided weakness MRI revealed sequela of left middle cerebral infarct etiology of his weakness # back pain patient said this has been ongoing for years/ often use to crawl due to this will check xrays #Positive BC staph coag contaminate # acute hypoxic respiratory failure multifactorial/ due to pna, hx of smoking #Elevated LFT hepatitis panel negative improving # R lower extremity pain chronic paresis xray and doppler show nothing acute #Nicotine dependence smokes approximately 5-10 cigarettes/day #Homelessness from the [facility] has no family locally CM working on placement/ to go [facility] #Dispo: pending/ get back xrays for further evaluation Subjective: Chase said he is 'terrible' today/ back hurts. Says he doesn't feel better. Objective: Vital Signs Temp Pulse Resp BP Pulse Ox 37.0 C 104 H 24 H 142/78 H 96 11/03/16 07:35 11/03/16 10:53 11/03/16 10:53 11/03/16 07:35 11/03/16 10:53 Microbiology 10/31/16 05:07 - Final Sputum, Expectorated Sputum Culture - Final Laboratory Results 11/03/16 04:51 11/03/16 04:51 11/02/16 11/03/16 11/04/16 05:59 05:59 05:59 Intake Total 1402.1 2205 Output Total 1325 1600 Balance 77.1 605 PT 16.9 SEC (12.0-15.0) H 10/30/16 03:35 INR 1.37 (0.83-1.16) H 10/30/16 03:35 - Physical Exam Constitutional: unkempt, other (thin), No not in pain Eyes: PERRL Ears, Nose, Mouth, Throat: hearing normal Cardiovascular: regular rate and rhythym Respiratory: no respiratory distress, reduced air movement Gastrointestinal: normoactive bowel sounds Skin: warm Musculoskeletal: generalized weakness Neurologic: AAOx3 Psychiatric: interacting appropriately ICD10 Worksheet Patient Problems: Problems Problem Status Onset Pneumonia Acute Right ankle pain Acute Stroke Acute
[2016-11-04] MEDS: NS 1,000 ML IV SCH (01:44)
[2016-11-04] MEDS: guaiFENesin 600 MG TAB.ER PO SCH ×3 (02:01→20:58)
[2016-11-04 03:02] LABS: BASE EXCESS -0.3 mEq/L (-2.5-2.5); BICARBONATE 22 mEq/L (22-26); MEASURED OXYGEN SATURATION 92 % (92-95); PCO2 27 mmHg (34-38); PO2 58 mmHg (65-75); TCO2 22 mEq/L (23-27)
[2016-11-04] MEDS: IPRATROPIUM/ALBUTEROL 3 ML DEYVIAL IH SCH ×4 (05:41→22:13)
[2016-11-04] MEDS: ENOXAPARIN 40 MG/0.4 ML SYR SC SCH (07:56)
--- NOTE | 2016-11-04 11:01 | HOSPPROG ---
Hospitalist Progress Note Assessment/Plan: Patient is a 61 year old homeless male with prior history of CVA with residual R hemiparesis, presented to the ED with complaint of RLE pain. ED evaluation also reveals septic shock secondary to acute bacterial pneumonia. # septic shock secondary to community acquired pneumonia reviewed chest xray with radiologist/ concern for aspiration had video swallow evaluation that was stable on ceftriaxone /dc azithro even though chest xray looks worse, patient is clinically better o2 sats on room air ranging from 87-91% #Left lung pulmonary nodules/non calcified needs a CT scan of his chest when improved reviewed this with the patient # right sided weakness MRI revealed sequela of left middle cerebral infarct etiology of his weakness # back pain lumbar xray shows a subluxation patient said the pain is impacting him daily will get an MRI/ neurosurgery to see/ appreciate their involvement #Positive BC staph coag contaminate # acute hypoxic respiratory failure multifactorial/ due to pna, hx of smoking much improved #Elevated LFT hepatitis panel negative improving # R lower extremity pain chronic paresis xray and doppler show nothing acute #Nicotine dependence smokes approximately 5-10 cigarettes/day #Homelessness from the [facility] has no family locally CM working on placement/ to go to [facility] #Dispo: pending/ appreciate neurosurgery seeing Chase/MRI ordered Subjective: Chase cried when I told him that neurosugery will see him, he is c/o ongoing severe back pain impacting his ability to walk. Objective: Vital Signs Temp Pulse Resp BP Pulse Ox 37.1 C 85 20 127/87 H 95 11/04/16 08:00 11/04/16 08:00 11/04/16 08:00 11/04/16 08:00 11/04/16 08:00 Microbiology 10/30/16 04:35 Blood Culture - Final Blood Laboratory Results 11/03/16 04:51 11/03/16 04:51 11/03/16 11/04/16 11/05/16 05:59 05:59 05:59 Intake Total 2205 775 Output Total 1600 1150 200 Balance 605 -375 -200 PT 16.9 SEC (12.0-15.0) H 10/30/16 03:35 INR 1.37 (0.83-1.16) H 10/30/16 03:35 - Physical Exam Constitutional: chronically ill appearing, other (thin) Eyes: PERRL Ears, Nose, Mouth, Throat: hearing normal Cardiovascular: regular rate and rhythym Respiratory: no respiratory distress, reduced air movement (right middle lobe down) Gastrointestinal: normoactive bowel sounds Skin: warm Musculoskeletal: muscular tenderness, generalized weakness Neurologic: AAOx3 Psychiatric: interacting appropriately ICD10 Worksheet Patient Problems: Problems Problem Status Onset Pneumonia Acute Right ankle pain Acute Stroke Acute
--- NOTE | 2016-11-04 14:55 | GCON ---
[f rep st] CONSULTATION NEUROSURGICAL CONSULTATION CHIEF COMPLAINT: The patient is a 61-year-old man with right lower extremity leg pain. HISTORY OF PRESENT ILLNESS: The patient was admitted recently about 4 or 5 days ago with a right duong dy stroke. He has been worked up for this and was noted to have a several month history of right le g pain. An x-ray was ordered, and he has a grade 2 spondylolisthesis at L4-5, and Neurosurgery is n ow consulted. On further questioning from the patient, he states that he has had leg pain for quite some time. He is now weak on his whole right side due to the recent stroke but does not know much more about his back. He is homeless and was recently placed in an apartment but gets around everywh ere in a wheelchair. PAST MEDICAL AND SURGICAL HISTORY: A history of recent stroke as noted above with partial right hem iparesis, right elbow surgery. MEDICATIONS ON ADMISSION: Unknown. ALLERGIES: Drug allergies none known. FAMILY HISTORY: Noncontributory. SOCIAL HISTORY: The patient is homeless but lives in an apartment he was placed in. DIAGNOSTIC STUDIES: X-rays of the lumbosacral spine demonstrated grade 2 spondylolisthesis at the L 4-5 level. IMPRESSION/RECOMMENDATIONS: This is a 61-year-old man with a recent right upper and lower extremity body stroke (left brain) who has a long history of right lower extremity radicular pain. He has a grade 2 spondylolisthesis at L4-5, and I have already spoken with Alicia Gandara, nurse seda partida, who has ordered an MRI of the lumbosacral spine. We will follow this up and go from there. /[id number]/MODL
[2016-11-04] MEDS: ACETAMINOPHEN 500 MG TAB PO SCH ×2 (16:41→20:57)
[2016-11-04] MEDS: LIDOCAINE 5% 1 EA PATCH TD SCH (16:42)
[2016-11-04] MEDS: IBUPROFEN 200 MG TAB PO PRN (17:39)
[2016-11-04] MEDS: PATCH REMOVAL 1 EA PATCH TD SCH (21:00)
[2016-11-05] MEDS: IPRATROPIUM/ALBUTEROL 3 ML DEYVIAL IH SCH ×4 (05:56→21:00)
[2016-11-05] MEDS: IBUPROFEN 200 MG TAB PO PRN ×3 (06:13→23:56)
--- NOTE | 2016-11-05 08:24 | NEUSURGPN ---
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 NAD. Eating/drinking and voiding. No f/c/n/v/d. Objective: AAO x 3, PERRLA/EOMI no droop CN 2-12 grossly intact +lt touch 5/5 to LLE, RLE at 3+/5 c/w hx-global nonfocal Neuro Check Frequency: per routine Urinary Catheter in Place: No - Physician Discussed Patient with Dr.: Leigh Ann Neurosurgery Physical Exam - Vitals, I&O, Labs I and O 11/04/16 11/05/16 11/06/16 05:59 05:59 05:59 Intake Total 775 240 Output Total 1150 1350 Balance -375 -1110 Intake: Oral (ml) 775 240 Output: Urine (ml) 1150 1350 Urinal 1150 1350 Other: Number of Voids Urinal 2 Microbiology 10/30/16 04:35 Blood Culture - Final Blood Vital Signs Temp Pulse Resp BP Pulse Ox 36.3 C 90 16 118/74 93 11/05/16 07:48 11/05/16 07:48 11/05/16 07:48 11/05/16 07:48 11/05/16 07:48 Laboratory Results 11/03/16 04:51 11/03/16 04:51 ICD10 Worksheet Patient Problems: Problems Problem Status Onset Pneumonia Acute Right ankle pain Acute Stroke Acute
--- NOTE | 2016-11-05 08:53 | HOSPPROG ---
Hospitalist Progress Note Assessment/Plan: Patient is a 61 year old homeless male with prior history of CVA with residual R hemiparesis, presented to the ED with complaint of RLE pain. ED evaluation also reveals septic shock secondary to acute bacterial pneumonia. # septic shock secondary to community acquired pneumonia reviewed chest xray with radiologist/ concern for aspiration had video swallow evaluation that was stable on ceftriaxone even though chest xray looks worse, patient is clinically better o2 sats on room air ranging from 87-91% #Left lung pulmonary nodules/non calcified needs a CT scan of his chest when improved reviewed this with the patient # right sided weakness MRI revealed sequela of left middle cerebral infarct etiology of his weakness # back pain/severe MRI shows severe bilateral stenosis to get a steroid injection today likely need surgery in the future #Positive BC staph coag contaminate # acute hypoxic respiratory failure multifactorial/ due to pna, hx of smoking much improved #Elevated LFT hepatitis panel negative improving # R lower extremity pain chronic paresis xray and doppler show nothing acute #Nicotine dependence smokes approximately 5-10 cigarettes/day #Homelessness from the [facility] has no family locally CM working on placement/ to go [facility] #Dispo: pending/ appreciate neurosurgery seeing Chase Subjective: Chase is feeling better/ wants help w his back pain and is will to try steroid injection. Objective: Vital Signs Temp Pulse Resp BP Pulse Ox 36.3 C 90 16 118/74 93 11/05/16 07:48 11/05/16 07:48 11/05/16 07:48 11/05/16 07:48 11/05/16 07:48 Microbiology 10/30/16 04:35 Blood Culture - Final Blood Laboratory Results 11/03/16 04:51 11/03/16 04:51 11/04/16 11/05/16 11/06/16 05:59 05:59 05:59 Intake Total 775 240 Output Total 1150 1350 Balance -375 -1110 PT 16.9 SEC (12.0-15.0) H 10/30/16 03:35 INR 1.37 (0.83-1.16) H 10/30/16 03:35 - Physical Exam Constitutional: chronically ill appearing, other (thin) Eyes: PERRL Ears, Nose, Mouth, Throat: hearing normal Cardiovascular: regular rate and rhythym Respiratory: no respiratory distress, reduced air movement Gastrointestinal: normoactive bowel sounds Skin: warm Musculoskeletal: generalized weakness Neurologic: AAOx3 Psychiatric: interacting appropriately ICD10 Worksheet Patient Problems: Problems Problem Status Onset Pneumonia Acute Right ankle pain Acute Stroke Acute
[2016-11-05] MEDS: ACETAMINOPHEN 500 MG TAB PO SCH ×3 (09:37→21:47)
[2016-11-05] MEDS: guaiFENesin 600 MG TAB.ER PO SCH ×2 (09:37→21:47)
[2016-11-05] MEDS: LIDOCAINE 5% 1 EA PATCH TD SCH (09:39)
[2016-11-05] MEDS: ENOXAPARIN 40 MG/0.4 ML SYR SC SCH (12:14)
[2016-11-05] MEDS ORDERED: MIDAZOLAM 2 MG/2 ML VIAL ONE (14:14)
[2016-11-05] MEDS ORDERED: fentaNYL 100 MCG/2 ML INJ ONE (14:14)
[2016-11-05] MEDS ORDERED: TRIAMCINOLONE ACETONIDE 200 MG/5 ML MDV IM ONE (14:34)
[2016-11-05] MEDS ORDERED: IOPAMIDOL (ISOVUE-M 300) 15 ML VIAL IV ONE (14:34)
[2016-11-05] MEDS: PATCH REMOVAL 1 EA PATCH TD SCH (21:49)
[2016-11-06] MEDS: IPRATROPIUM/ALBUTEROL 3 ML DEYVIAL IH SCH ×4 (06:09→20:43)
[2016-11-06] MEDS: ENOXAPARIN 40 MG/0.4 ML SYR SC SCH (08:16)
[2016-11-06] MEDS: ACETAMINOPHEN 500 MG TAB PO SCH ×3 (08:16→21:13)
[2016-11-06] MEDS: guaiFENesin 600 MG TAB.ER PO SCH ×2 (08:16→20:09)
[2016-11-06] MEDS: LIDOCAINE 5% 1 EA PATCH TD SCH (08:17)
--- NOTE | 2016-11-06 09:13 | HOSPPROG ---
Hospitalist Progress Note Assessment/Plan: Patient is a 61 year old homeless male with prior history of CVA with residual R hemiparesis, presented to the ED with complaint of RLE pain. ED evaluation also reveals septic shock secondary to acute bacterial pneumonia. # septic shock secondary to community acquired pneumonia resolved on room air stopped iv abx ST evaluated/no aspiration #Left lung pulmonary nodules/non calcified needs a CT scan of his chest when improved reviewed this with the patient # right sided weakness MRI revealed sequela of left middle cerebral infarct etiology of his weakness # back pain/severe appreciate neurosurgery/ s/p DEBBIE to L4-L5 feels his pain is better #Positive BC staph coag contaminate # acute hypoxic respiratory failure resolved #Elevated LFT hepatitis panel negative improved # R lower extremity pain chronic paresis xray and doppler show nothing acute #Nicotine dependence smokes approximately 5-10 cigarettes/day #Homelessness from the [facility] originally #Dispo: Chase very much wants to go to the home Ishan has helped arrange ( [facility]). He has had the weakness from the CVA and has been able to care for himself somewhat on the street and has been using a wheelchair. The plan is to dc on Monday, hopefully to the housing that has been arranged. He is open to the SNF but would love to be in his own place. Subjective: Chase is concerned about his discharge. Says the steroid injection helped his back pain. Objective: Vital Signs Temp Pulse Resp BP Pulse Ox 36.4 C 85 16 149/87 H 93 11/06/16 07:44 11/06/16 07:44 11/06/16 07:44 11/06/16 07:44 11/06/16 07:44 Microbiology 10/31/16 20:35 Blood Culture - Final Blood 10/31/16 20:35 Blood Culture - Final Blood Laboratory Results 11/03/16 04:51 11/03/16 04:51 11/05/16 11/06/16 11/07/16 05:59 05:59 05:59 Intake Total 240 1115 Output Total 1350 1120 Balance -1110 -5 PT 16.9 SEC (12.0-15.0) H 10/30/16 03:35 INR 1.37 (0.83-1.16) H 10/30/16 03:35 - Physical Exam Constitutional: no apparent distress, other (thin) Eyes: PERRL Ears, Nose, Mouth, Throat: hearing normal Cardiovascular: regular rate and rhythym Respiratory: no respiratory distress Gastrointestinal: normoactive bowel sounds Skin: warm, No normal color (pale) Musculoskeletal: generalized weakness Neurologic: AAOx3 Psychiatric: interacting appropriately ICD10 Worksheet Patient Problems: Problems Problem Status Onset Pneumonia Acute Right ankle pain Acute Stroke Acute
--- NOTE | 2016-11-06 14:44 | NEUSURGPN ---
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 Still does not want surgery -offered surgery and he again wants to hold off at this time -due to the foraminal stenosis we recommended an DEBBIE first and then if no improvement to get surgery -warning signs given -Neurosurgery to sign off and patient to follow up with Dr. Beltrán in 2-4 weeks to follow up. -call with any questions or concerns -pt understands risks Subjective: Awake and alert. States pain in ~50% better after injection. Still does not want any surgery. Has been up walking to bathroom. Objective: AAO x 3, PERRLA/EOMI CN 2-12 grossly intact +lt touch 5/5 to LLE, RLE at 3+/5 c/w hx-global nonfocal - Physician Discussed Patient with Dr.: Beltrán Neurosurgery Physical Exam - Vitals, I&O, Labs I and O 11/05/16 11/06/16 11/07/16 05:59 05:59 05:59 Intake Total 240 1115 Output Total 1350 1120 Balance -1110 -5 Intake: Oral (ml) 240 550 IV Intake (ml) 515 IV Infused (ml) 50 cefTRIAXone 1 GM/DEXTROSE 50 50 ml @ 100 mls/hr IV DAILY [facility] Rx#:[id number] Output: Urine (ml) 1350 1120 Urinal 1350 1120 Other: Number of Stools Urinal 1 Microbiology 10/31/16 20:35 Blood Culture - Final Blood 10/31/16 20:35 Blood Culture - Final Blood Vital Signs Temp Pulse Resp BP Pulse Ox 36.5 C 90 17 113/69 92 11/06/16 11:35 11/06/16 12:05 11/06/16 12:05 11/06/16 11:35 11/06/16 12:05 Laboratory Results 11/03/16 04:51 11/03/16 04:51 ICD10 Worksheet Patient Problems: Problems Problem Status Onset Pneumonia Acute Right ankle pain Acute Stroke Acute
[2016-11-06] MEDS: PATCH REMOVAL 1 EA PATCH TD SCH (20:09)
[2016-11-06] MEDS: HYDROCODONE/APAP 5/325 TAB PO PRN (20:09)
[2016-11-07] MEDS: HYDROCODONE/APAP 5/325 TAB PO PRN (04:21)
[2016-11-07] MEDS: IPRATROPIUM/ALBUTEROL 3 ML DEYVIAL IH SCH ×2 (05:25→09:33)
[2016-11-07 07:18] VITALS: BP 153/82; TEMP 98.2
[2016-11-07] MEDS: guaiFENesin 600 MG TAB.ER PO SCH (08:55)
[2016-11-07] MEDS: ACETAMINOPHEN 500 MG TAB PO SCH (08:55)
[2016-11-07] MEDS: LIDOCAINE 5% 1 EA PATCH TD SCH (08:59)
[2016-11-07] MEDS: ENOXAPARIN 40 MG/0.4 ML SYR SC SCH (09:00)
[2016-11-07 09:41] VITALS: PULSE 94; RESP 16; O2SAT 92
--- NOTE | 2016-11-07 10:54 | PDIAF ---
- Diagnosis Diagnosis: PNA Code Status: Full Code - Medication Management Discharge Medications: Medications to Continue on Transfer Acetaminophen [Tylenol ES 500 mg (*)] 1,000 mg PO TID tab 11/07/16 [Last Taken Unknown] Hydrocodone/APAP 5/325 [[place] 5/325 (*)] 1 - 2 tab PO Q4HRS PRN #10 tab [Last Taken Unknown] Ibuprofen [Motrin (*)] 400 mg PO Q6HRS PRN #0 tab 11/07/16 [Last Taken Unknown] Lidocaine 5% [Lidoderm 5% Patch (*)] 1 ea TD DAILY #30 patch 11/07/16 [Last Taken Unknown] Patch Removal 1 ea TD DAILY21 patch 11/07/16 [Last Taken Unknown] Discharge Medications: Refer to the Discharge Home Medication list for PRN reason. PICC Care - Routine: N/A - Orders Services needed: Home Care, Physical Therapy, Occupational Therapy Home Care Face to Face: I certify that this patient was under my care and that I had the required [id number] encounter meeting the encounter requirements on the discharge day. My findings support the fact that the patient is homebound as defined in CMS Chapter 7 Medicare Benefits Manual 30.1.1, The condition of the patient is such that there exists a normal inability to leave home and consequently, leaving home would require a considerable and taxing effort. Diet Recommendation: no restrictions on diet - Follow Up Care Current Providers and Referrals: Jan Beltrán MD [Medical Doctor] - follow up in 2 weeks (Follow up in 2-[address] Beltrán regarding your leg pain/injection progress. ) [facility],. [Clinic] - As per Instructions
--- NOTE | 2016-11-08 00:34 | GDS ---
[f rep st] DISCHARGE SUMMARY DISCHARGE DIAGNOSES: 1. Community-acquired pneumonia. 2. Septic shock, secondary to community-acquired pneumonia. 3. Left lung pulmonary nodules. 4. Right-sided weakness. 5. Back pain. 6. Contaminated positive blood culture. 7. Acute hypoxemic respiratory failure. 8. Transaminitis. 9. Right lower extremity pain. 10. Homelessness. 11. Nicotine dependency. CONSULTATIONS: Jose Manuel Paz MD, of Neurosurgery. PHYSICAL EXAM: GENERAL: The patient is alert. VITAL SIGNS: Afebrile at 36.8, pulse is 87, respir atory rate is 18, blood pressure is 153/82. He is saturating 93% on room air. I have seen and eval uated the patient on the day of discharge. HOSPITAL COURSE: The patient is a 61-year-old homeless male who presented to the emergency room wit h complaints of right lower extremity pain. He was evaluated and diagnosed with: 1. Septic shock, secondary to community-acquired pneumonia. This has resolved. 2. Community-acquired pneumonia. During this hospitalization, he was treated with antibiotic thera py. His condition has resolved, and requires no further antibiotic treatment. 3. Acute hypoxemic respiratory failure. This is in the presence of a community-acquired pneumonia, and has resolved. 4. Left lung pulmonary nodules. I have educated the patient that he is to follow up with a CAT kevin damico in the outpatient setting to assure stability. He states that he understands this. 5. Right-sided weakness. He does have a history of left middle cerebral infarct. I think his weak ness has been exacerbated by his acute illness, and he will continue physical therapy and occupation al therapy in the outpatient setting. 6. Back pain. This is severe, per the patient. He did receive an epidural steroid injection durin g this hospital course, and has been responding well. [facility] 7. Positive blood culture. This was a contaminant of staph coagulase. 8. Elevated liver function. This is improving. 9. Right lower extremity pain. This is chronic and ongoing, secondary to the patient's history of CVA. 10. Nicotine dependence. Tobacco cessation education has been provided. 11. Homelessness. The patient has been arranged housing with [facility] He will be discharged there with home physical therapy and occupational therapy. He will follow up with Dr. Beltrán in [facility] outpatient setting, as well as [facility]. A repeat CT scan of his chest is indicated in the future. I discussed the patient's disposition with Case Management. I have spent greater than 35 minutes in the care, coordination, and management of this patient's discharge. /[id number]/MODL
== END 2016-11-07 12:58 | disposition home health service (06) | DRG 193 ==
LOC: EDUNIT# → F3E 05:59
PROVIDERS: ADMIT Internal Medicine; ATTEND Student in an Organized Health Care Education/Training Program
PROC: 3E0333Z Introduction of Anti-inflammatory into Peripheral Vein, Percutaneous Approach (ICD-10-PCS; principal; 2016-11-05)
PROC: 3E0S3BZ Introduction of Anesthetic Agent into Epidural Space, Percutaneous Approach (ICD-10-PCS; principal; 2016-11-05)
DX: J18.9 Pneumonia, unspecified organism (principal); R65.21 Severe sepsis with septic shock; J96.01 Acute respiratory failure with hypoxia; I69.351 Hemiplegia and hemiparesis following cerebral infarction affecting right dominant side; M25.571 Pain in right ankle and joints of right foot; M43.16 Spondylolisthesis, lumbar region; F17.210 Nicotine dependence, cigarettes, uncomplicated; R79.89 Other specified abnormal findings of blood chemistry; R91.8 Other nonspecific abnormal finding of lung field; Z59.0 Homelessness
CPT/HCPCS: 87449-90; 92610-GN; 92611-GN; 97162-GP; 97165-GO; 97530-GO; 97530-GP; G0472; J0456; J0696; J1650; J2250; J3010; J3301; Q9967

== ENCOUNTER 2016-11-30 11:43 | Inpatient (IN) | payer MEDICAID ==
--- NOTE | 2016-11-30 12:28 | EDPHY ---
H & P Time Seen by Provider: 11/30/16 11:51 HPI/ROS: CHIEF COMPLAINT: Hemoptysis, hypoxia. HISTORY OF PRESENT ILLNESS: The patient is a 61-year-old male with prior CVA who presents with hemoptysis. He was admitted 10/30-11/07/16 for pneumonia and septic shock. The patient states he has continued to have productive cough since he was discharged 11/07. Associated with gradually increasing SOB. The patient went to [facility] today for ongoing cough with acute hemoptysis. Hemoptysis is a couple of tablespoons of blood/clots. At the clinic he was found to be hypoxic. He complains of right sided chest pain, but states this is chronic. No associated fever. REVIEW OF SYSTEMS: A comprehensive 10 point review of systems is otherwise negative aside from elements mentioned in the history of present illness. Past Medical/Surgical History: CVA with residual partial right hemiparesis Social History: Everyday cigarette smoker. Smoking Status: Current every day smoker Physical Exam: General Appearance: Alert, pleasant Eyes: Pupils equal and round, no conjunctival pallor or injection ENT, Mouth: Mucous membranes moist Neck: Normal inspection Respiratory: Decreased breath sounds at the right base Cardiovascular: Regular rate and rhythm Gastrointestinal: Abdomen is soft and non-tender Neurological: A&O, right sided weakness Skin: Warm and dry, no rash Extremities: Nontender, no pedal edema Psychiatric: Mood and affect normal Constitutional: Initial Vital Signs Temperature (C) 36.8 C 11/30/16 11:45 Heart Rate 89 11/30/16 11:45 Respiratory Rate 20 11/30/16 11:45 Blood Pressure 112/69 11/30/16 11:45 O2 Sat (%) 90 L 11/30/16 11:45 O2 Delivery Mode Nasal Cannula O2 (L/minute) 2 Allergies/Adverse Reactions: No Known Allergies Allergy (Verified 11/30/16 11:44) Home Medications: Medication Instructions Recorded NK [No Known Home Meds] 11/30/16 Medical Decision Making - Diagnostics Imaging Results: CTA of the chest reveals bilateral PE, moderate clot burden Imaging: Discussed imaging studies w/ wood panel inspector Radiologist ED Course/Re-evaluation: The patient was admitted 10/30 for septic shock caused by pneumonia. Since discharged 11/07 the patient has an ongoing cough, productive cough. Today he went to [facility] for acute hemoptysis. At the clinic he was hypoxic. Patient is 90% on room air here. Plan for blood cultures, labs, lactic acid, and chest x-ray. Chest x-ray reveals likely RLL pneumonia. Cavitary lesion present. Pt placed in respiratory isolation for possible tb. Blood cx's drawn. The patient was given 750mg IV Levaquin. Lactic acid is normal. PT/INR is normal. WBC is slightly elevated. CTA chest was ordered to further evaluate cavitary lesion and hemptysis. 1:10 p.m.: The hospitalist service was consulted for admission. The patient will be admitted to Dr. Ludwig. CT reported to me by Dr. Castro, shows bilateral PEs. Pt informed of PE. No prior h/o PE or bleeding. Patient was started on IV Heparin per wt-based protocol. Will continue resp isolation for now. Differential Diagnosis: includes though not limited to pneumonia, tb, PE, pulm edema, empyema, bronchitis - Data Points Laboratory Results: Laboratory Results 11/30/16 12:40 11/30/16 12:40 Medications Given: Discontinued Medications Heparin Sodium (Porcine) (Heparin Injection) 0 unit IVP EDNOW ONE PRN Reason: Protocol Stop: 11/30/16 14:09 Last Admin: 11/30/16 15:20 Dose: 3,300 units Heparin Sodium (Porcine) (Heparin Injection) 0 unit IVP ONCE ONE PRN Reason: Protocol Stop: 11/30/16 14:42 Last Admin: 11/30/16 17:57 Dose: Not Given Levofloxacin/Dextrose (Levaquin 750 Mg (Premix)) 150 mls @ 100 mls/hr IV EDNOW ONE PRN Reason: Protocol Stop: 11/30/16 14:36 Last Admin: 11/30/16 13:47 Dose: 150 mls Heparin Sodium (Porcine) (Heparin 50 Units/Ml (Premix)) 500 mls @ 0 mls/hr IV EDNOW ONE; Per Protocol PRN Reason: Protocol Stop: 11/30/16 14:09 Last Admin: 11/30/16 14:58 Dose: 500 mls Sodium Chloride (Ns) 1,000 mls @ 200 mls/hr IV CONT VLADIMIR Stop: 11/30/16 19:44 Last Admin: 11/30/16 18:26 Dose: 1,000 mls Departure - Departure Disposition: [facility] Inpatient Acute Clinical Impression: Hemoptysis Pulmonary emboli Qualifiers: Pulmonary embolism type: other Chronicity: acute Acute cor pulmonale presence: without acute cor pulmonale Qualified Code(s): I26.99 - Other pulmonary embolism without acute cor pulmonale Condition: Fair Report Scribed for: Claudia Patel Report Scribed by: Maria Luisa Shields Date of Report: 11/30/16 Time of Report: 12:24 Physician Review and Approval Statement: 11/30/16 12:24 Portions of this note were transcribed by a medical staff coordinator. I personally performed the history, physical exam, and medical decision-making; and confirmed the accuracy of the information in the transcribed note.
[2016-11-30 12:49] LABS: % IMMATURE GRANULYOCYTES 0.4 % (0.0-1.1); ABSOLUTE IMMATURE GRANULOCYTES 0.05 10^3/uL (0.00-0.10); ADD DIFF? NO; ADD MORPH? NO; ADD SCAN? NO; ATYPICAL LYMPHOCYTE FLAG 0 (0-99); FRAGMENT RBC FLAG 0 (0-99); HEMOGLOBIN 15.2 g/dL (13.7-17.5); LEFT SHIFT FLG 0 (0-99); LIPEMIA HEMOLYSIS FLAG 90 (0-99); MEAN CELL HEMOGLOBIN 30.7 pg (27.9-34.1); MEAN CELL HEMOGLOBIN CONCENTR. 33.8 g/dL (32.4-36.7); MEAN CELL VOLUME 90.9 fL (81.5-99.8); MEAN PLATELET VOLUME 9.1 fL (8.7-11.7); PLATELET CLUMPS FLAG 0 (0-99); PLATELET COUNT 186 10^3/uL (150-400); RED BLOOD CELL COUNT 4.95 10^6/uL (4.40-6.38); RED CELL DISTRIBUTION WIDTH 14.6 % (11.5-15.2)
[2016-11-30 12:57] LABS: INR 1.14 (0.83-1.16); PROTIME(PATIENT) 14.5 SEC (12.0-15.0)
[2016-11-30 12:58] LABS: APTT 29.5 SEC (23.0-38.0)
[2016-11-30 13:02] LABS: ANION GAP 12 mEq/L (8-16); BILIRUBIN,TOTAL 1.1 mg/dL (0.1-1.4); CALCIUM 9.2 mg/dL (8.5-10.4); CARBON DIOXIDE 24 mEq/l (22-31); CHLORIDE 100 mEq/L (97-110); CREATININE 0.7 mg/dL (0.7-1.3); GLOMERULAR FILTRATION RATE > 60; GLUCOSE 77 mg/dL (70-100); POTASSIUM 4.7 mEq/L (3.5-5.2); SODIUM 136 mEq/L (134-144)
[2016-11-30] MEDS ORDERED: IOPAMIDOL (ISOVUE 370) 100 ML BTL IV ONE (13:18)
[2016-11-30] MEDS ORDERED: HEPARIN/DEXTROSE 500 ML IV ONE (14:08)
[2016-11-30] MEDS ORDERED: HEPARIN 10,000 UNIT/10 ML MDV IVP ONE ×2 (14:08→14:41)
[2016-11-30] MEDS ORDERED: ONDANSETRON DISINTEGRATING 4 MG TAB PO PRN (14:38)
[2016-11-30] MEDS ORDERED: ONDANSETRON 4 MG/2 ML VIAL IVP PRN (14:38)
[2016-11-30] MEDS ORDERED: HEPARIN/DEXTROSE 500 ML IV SCH (14:45)
[2016-11-30] MEDS ORDERED: NS 1,000 ML IV SCH (14:45)
[2016-11-30 15:17] LABS: ALBUMIN 3.5 g/dL (3.5-5.0); BILIRUBIN-CONJUGATED 0.4 mg/dL (0.0-0.5); BILIRUBIN-UNCONJUGATED 0.6 mg/dL (0.0-1.1); TOTAL PROTEIN 6.9 g/dL (6.3-8.2)
--- NOTE | 2016-11-30 15:48 | GHP ---
[f rep st] HISTORY AND PHYSICAL DATE OF ADMISSION: 11/30/2016 HISTORY OF PRESENT ILLNESS: The patient is a pleasant 61-year-old gentleman who is intermittently homeless and was recently admitted here for pneumonia who presents with cough that just has not gone away. He denies pleuritic chest pain , chest pain, shortness of breath. He has been living up on [facility] and what sounds like some homeless housing and has been eating well. In fact, eating trying to put weight on, and he has been unable to. He has not had fever or chills. He denies ever having been in prisoner or having stayed in a homeless prison. Denies postprandial right upper quadrant pain. He was admitted from October 10 to the November 07 with community-acquired pneumonia and sepsis as well as some right-sided weakness and back pain. He had an epidural steroid injection during that time period. I noticed that he had positive blood cultures which were felt to be contaminant with coagulase-negative Staph. When I see the patient, he is really complaining of just ongoing cough. He had a CT in the emergency department showing moderate clot burden and bilateral pulmonary emboli, resolving left lower lobe cavitary lesion. REVIEW OF SYSTEMS: Complete 10-point review of systems conducted, negative except as noted in the HPI. PAST MEDICAL HISTORY: 1. Tobacco use. 2. Community-acquired pneumonia. 3. CVA in the left MCA distribution with residual right-sided weakness. 4. Left lung pulmonary nodules. 5. Transaminitis. HOME MEDICATIONS: None. ALLERGIES: No known drug allergies. SOCIAL HISTORY: He is originally from [place]. Denies homelessness. Chronic smoking. Unclear amount of alcohol. FAMILY HISTORY: Parents . PHYSICAL EXAM: VITAL SIGNS: Temperature 37.4, blood pressure 139/75, pulse 92 , breathing 16 times a minute, 95% on 3 L. GENERAL: No acute distress. Cachectic. Sclerae anicteric. Oropharynx clear. Mucous membranes moist. NECK : Supple. No lymphadenopathy or JVD. LUNGS: Clear to auscultation bilaterally. HEART: S1, S2. Borderline tachycardic. ABDOMEN: Soft. There is a right upper quadrant tenderness. There is actually kind of a Jim sign. Abdomen is otherwise soft, nontender, nondistended. LOWER EXTREMITIES: No edema. Calves nontender. SKIN: Without rash. NEUROLOGIC: Shows incomplete right-sided hemiparesis. LABS: White count 11.99 with a left shift, hematocrit 45, platelets are 186, 000. Coags normal. Venous lactate 0.9. Sodium 136, potassium 4.7, chloride 100, bicarb 24, BUN 26, creatinine 0.7. LFTs are pending. CT of the chest is as described in the HPI. I discussed the case with Dr. Lou Romero. ASSESSMENT AND PLAN: A 61-year-old man presents with ongoing cough and pulmonary embolism. 1. Pulmonary embolism, was provoked given recent hospitalization and history of neurologic illness. Start him on heparin drip and warfarin. 2. Question tuberculosis. I reviewed his chest images and interpreted the images myself, and I see a minor cavitary lesion. however, given his cachexia and homelessness, I think we are bound to rule him out. I have ID see him. 3. Recent sepsis. The patient appeared to have recovered from this, including resolving infiltrates or pneumonia. 4. Stroke. He has a history of stroke. He should be on an aspirin which I will start. 5. Prophylaxis. He therapeutically anticoagulated. 6. Disposition. Inpatient status. /[id number]/MODL MTDD
[2016-11-30] MEDS: WARFARIN SODIUM 5 MG TAB PO SCH (18:26)
[2016-11-30] MEDS: ACETAMINOPHEN 325 MG TAB PO PRN (18:42)
[2016-11-30 21:10] LABS: INR 1.16 (0.83-1.16); PROTIME(PATIENT) 14.8 SEC (12.0-15.0)
[2016-11-30 21:11] LABS: APTT 32.9 SEC (23.0-38.0)
--- NOTE | 2016-11-30 21:31 | GCON ---
[f rep st] CONSULTATION DATE OF CONSULTATION: 11/30/2016 REFERRING PHYSICIAN: Johnie Ludwig MD REASON FOR CONSULTATION: Cavitation on CT scan. HISTORY OF PRESENT ILLNESS: This is a 61-year-old male, who is intermittently homeless, admitted for pneumonia earlier this month from 10/30/2016 to 2016. The patient completed IV antibiotics while hospitalized and he initially presented in septic shock. He was treated with ceftriaxone and azithromycin. On the day of discharge, he had normal oxygen saturations on room air. The patient reports that, since discharge, he has had progressive shortness of breath and coughing. He feels like his respiratory rate is elevated and he notes some intermittent hemoptysis. He denies any weight loss but has difficulty gaining weight. He does occasionally feel chilled but denies night sweats. He reports a generally good appetite. The patient grew up in [place] but states that there was nobody in his community that never had tuberculosis. He also states that he generally tries to avoid people as they "carry infections." Further, he denies ever staying in homeless shelters and has not been incarcerated. The patient was seen in the emergency room and underwent a CT scan which showed bilateral pulmonary emboli with moderate clot burden with focal areas of consolidation in the right upper lobe which could reflect pulmonary infarct. Radiologist suggests this may be more likely as opposed to infection as there is little inflammatory change adjacent. The patient was admitted to the hospital to undergo further workup and started on anticoagulation. REVIEW OF SYSTEMS: A complete 10-point review of systems was performed and is negative except as mentioned in HPI. PAST MEDICAL HISTORY: 1. Recent community-acquired pneumonia, status post ceftriaxone and azithromycin. 2. CVA in the left MCA distribution with residual right-sided weakness. 3. Left lung pulmonary nodules. 4. Elevated LFTs. 5. Tobacco use. HOME MEDICATIONS: None. ADMISSION MEDICATIONS: Include Coumadin, heparin, and Tylenol. The patient was given a dose of IV levofloxacin in the emergency room. ALLERGIES: NKDA. SOCIAL HISTORY: Grew up in [facility] [place], reports "living on his own " in [place] on and off for years. Tobacco use. Denies any alcohol use and denies drug use. FAMILY HISTORY: Patient denies family history of tuberculosis. PHYSICAL EXAMINATION: VITAL SIGNS: Temperature 37.4, blood pressure 135/75, pulse 92, respiratory rate 16, saturation 95% on 3 L. GENERAL: This is a very thin male, reasonably groomed, no acute distress. HEENT: No jaundice. Oropharynx: Patient has dentures. Moist mucous membranes. No oral ulcerations or exudates. NECK: Supple. No lymphadenopathy. CHEST: Clear to auscultation bilaterally. CARDIOVASCULAR: Regular rate. No murmurs. ABDOMEN: Soft, nontender. LOWER EXTREMITIES: No joint swelling. Normal capillary refill. No Homans sign. SKIN: The patient is very tanned but without rash. NEUROLOGIC: He has severe right upper extremity weakness and mild lower extremity weakness. Somewhat odd affect but alert and oriented. LABORATORY DATA: White count 11.9, hematocrit 45, platelets 186, 73% neutrophils. Creatinine 0.7. Urinalysis not performed. Past lab testing shows negative hepatitis serologies in 11/01/2016. IMAGING: As per HPI. ASSESSMENT: This is a 61-year-old male with a past medical history of a cerebrovascular accident and recent pneumonia, status post hospitalization in late October or early November who presents with worsening shortness of breath and hemoptysis and is found to have PEs with a fair burden of clot in his lungs. The patient denies any specific exposure to tuberculosis, but he has been chronically homeless, otherwise has no specific risk factors. My impression is that clot likely accounts for cavitary lesions identified on the right upper lung. RECOMMENDATIONS: 1. Continue respiratory isolation for now. Not clear to me that r/o tuberculosis is needed, as TB seems unlikely. We will start with getting first AFB smear and send T spot. 2. Screen for HIV. 3. Agree with monitoring off antibiotic therapy and focusing treatment on PEs Thank you for this consult. We will continue to follow on a daily basis and assess if continued respiratory isolation is needed /[id number]/MODL MTDD
[2016-11-30] MEDS: HEPARIN 10,000 UNIT/10 ML MDV IVP PRN (23:10)
[2016-12-01 05:40] LABS: % IMMATURE GRANULYOCYTES 0.4 % (0.0-1.1); ABSOLUTE IMMATURE GRANULOCYTES 0.04 10^3/uL (0.00-0.10); ADD DIFF? NO; ADD MORPH? NO; ADD SCAN? NO; ATYPICAL LYMPHOCYTE FLAG 0 (0-99); FRAGMENT RBC FLAG 0 (0-99); HEMATOCRIT 39.6 % (40.0-51.0); HEMOGLOBIN 13.1 g/dL (13.7-17.5); LEFT SHIFT FLG 0 (0-99); LIPEMIA HEMOLYSIS FLAG 80 (0-99); MEAN CELL HEMOGLOBIN 30.7 pg (27.9-34.1); MEAN CELL HEMOGLOBIN CONCENTR. 33.1 g/dL (32.4-36.7); MEAN CELL VOLUME 92.7 fL (81.5-99.8); MEAN PLATELET VOLUME 9.4 fL (8.7-11.7); PLATELET CLUMPS FLAG 0 (0-99); PLATELET COUNT 157 10^3/uL (150-400); RED BLOOD CELL COUNT 4.27 10^6/uL (4.40-6.38); RED CELL DISTRIBUTION WIDTH 14.6 % (11.5-15.2)
[2016-12-01 05:51] LABS: INR 1.09 (0.83-1.16)
[2016-12-01 05:52] LABS: APTT 36.9 SEC (23.0-38.0)
[2016-12-01 05:57] LABS: ANION GAP 8 mEq/L (8-16); CALCIUM 8.4 mg/dL (8.5-10.4); CARBON DIOXIDE 24 mEq/l (22-31); CHLORIDE 105 mEq/L (97-110); CREATININE 0.6 mg/dL (0.7-1.3); GLOMERULAR FILTRATION RATE > 60; GLUCOSE 84 mg/dL (70-100); POTASSIUM 4.5 mEq/L (3.5-5.2); SODIUM 137 mEq/L (134-144)
[2016-12-01] MEDS: HEPARIN 10,000 UNIT/10 ML MDV IVP PRN (06:27)
[2016-12-01] MEDS: ACETAMINOPHEN 325 MG TAB PO PRN (09:24)
--- NOTE | 2016-12-01 11:34 | HOSPPROG ---
Hospitalist Progress Note Assessment/Plan: 61 yo M w b/l pe, rul cavitary lesion and concern for TB PE: provoked given recent hospitalization change to LMWH and warfarin not ideal anticoag candidate given transient status so recommend 3 months anticoag moderate clot burden ?TB: clinical suspicion not that high, but falls in high risk demographic AFB X 3 T spot ID following recent pneumonia: cxr w resolution of infiltrate proph: anticoagulated cachexia: add ensure w meals dispo: inpt Subjective: case d/w dr brady. images reviewed/interpreted by me Objective: Vital Signs Temp Pulse Resp BP Pulse Ox 36.4 C 90 16 98/48 L 97 12/01/16 11:07 12/01/16 11:07 12/01/16 11:07 12/01/16 11:07 12/01/16 11:07 Microbiology 11/30/16 18:40 - Final Sputum, Expectorated Laboratory Results 12/01/16 04:30 12/01/16 04:30 11/30/16 12/01/16 12/02/16 05:59 05:59 05:59 Intake Total 800 Output Total 625 Balance 175 PT 14.0 SEC (12.0-15.0) 12/01/16 05:00 INR 1.09 (0.83-1.16) 12/01/16 05:00 - Physical Exam Constitutional: no apparent distress, appears nourished Eyes: PERRL, anicteric sclera Ears, Nose, Mouth, Throat: moist mucous membranes, hearing normal Cardiovascular: regular rate and rhythym, no murmur, rub, or gallop Respiratory: no respiratory distress, no rales or rhonchi, clear to auscultation Gastrointestinal: normoactive bowel sounds, soft, non-tender abdomen Genitourinary: no bladder fullness, No campbell in urethra Skin: warm Musculoskeletal: full muscle strength, no muscle tenderness Neurologic: AAOx3 ICD10 Worksheet Patient Problems: Problems Problem Status Onset Hemoptysis Acute Pulmonary emboli Acute Pneumonia Acute Right ankle pain Acute Stroke Acute
[2016-12-01] MEDS: WARFARIN SODIUM 5 MG TAB PO SCH (16:44)
--- NOTE | 2016-12-01 18:11 | PCMIDPN ---
Assessment/Plan: Assessment: cavitary lesion R lung in setting of moderate PE burden. Recent pneumonia earlier this year, but no current respiratory symptoms of significance other than shortness of breath. Doubt that this will represent TB. Awaiting rule out by AFB smear. Patient is clinically stable. Plan: 1) Continue to observe off antibiotics. 2) Follow up on AFB smear results. 12/01/16 23:55 12/01/16 23:56 Subjective: Patient resting in his bed in the isolation room. No complaints. Breathing is a bit better. No fevers. Objective: no antibiotics Vital Signs Temp Pulse Resp BP Pulse Ox 36.6 C 82 18 103/58 L 98 12/01/16 15:10 12/01/16 15:10 12/01/16 15:10 12/01/16 15:10 12/01/16 15:10 Microbiology 11/30/16 18:40 - Final Sputum, Expectorated Laboratory Results 12/01/16 04:30 12/01/16 04:30 11/30/16 12/01/16 12/02/16 05:59 05:59 05:59 Intake Total 800 Output Total 625 Balance 175 - Physical Exam General Appearance: WD/WN, alert, thin, non-toxic Respiratory: lungs clear, normal breath sounds, No respiratory distress Cardiac/Chest: regular rate, rhythm, No tachycardia Skin: normal color, warm/dry, No rash ICD10 Worksheet Patient Problems: Problems Problem Status Onset Hemoptysis Acute Pulmonary emboli Acute Pneumonia Acute Right ankle pain Acute Stroke Acute
[2016-12-01] MEDS: ENOXAPARIN 60 MG/0.6 ML SYR SC SCH (20:27)
[2016-12-01] MEDS ORDERED: ENOXAPARIN 60 MG/0.6 ML SYR SC SCH (21:00)
[2016-12-02 04:55] LABS: % IMMATURE GRANULYOCYTES 0.3 % (0.0-1.1); ABSOLUTE IMMATURE GRANULOCYTES 0.02 10^3/uL (0.00-0.10); ADD DIFF? NO; ADD MORPH? NO; ADD SCAN? NO; ATYPICAL LYMPHOCYTE FLAG 10 (0-99); FRAGMENT RBC FLAG 0 (0-99); HEMATOCRIT 39.4 % (40.0-51.0); HEMOGLOBIN 13.1 g/dL (13.7-17.5); LEFT SHIFT FLG 0 (0-99); LIPEMIA HEMOLYSIS FLAG 80 (0-99); MEAN CELL HEMOGLOBIN 30.6 pg (27.9-34.1); MEAN CELL HEMOGLOBIN CONCENTR. 33.2 g/dL (32.4-36.7); MEAN CELL VOLUME 92.1 fL (81.5-99.8); MEAN PLATELET VOLUME 9.3 fL (8.7-11.7); PLATELET CLUMPS FLAG 0 (0-99); PLATELET COUNT 201 10^3/uL (150-400); RED BLOOD CELL COUNT 4.28 10^6/uL (4.40-6.38); RED CELL DISTRIBUTION WIDTH 14.3 % (11.5-15.2)
[2016-12-02 05:09] LABS: ANION GAP 4 mEq/L (8-16); CALCIUM 8.4 mg/dL (8.5-10.4); CARBON DIOXIDE 26 mEq/l (22-31); CHLORIDE 106 mEq/L (97-110); CREATININE 0.6 mg/dL (0.7-1.3); GLOMERULAR FILTRATION RATE > 60; GLUCOSE 82 mg/dL (70-100); POTASSIUM 4.3 mEq/L (3.5-5.2); SODIUM 136 mEq/L (134-144)
[2016-12-02] MEDS: ENOXAPARIN 60 MG/0.6 ML SYR SC SCH ×2 (08:11→22:09)
--- NOTE | 2016-12-02 09:30 | HOSPPROG ---
Hospitalist Progress Note Assessment/Plan: First encounter with this patient. This is a 61 yo homeless M w b/l pe, rul cavitary lesion and concern for TB PE: provoked given recent hospitalization change to LMWH 12/01 and warfarin. Pharmacy dosing warfarin not ideal anticoag candidate given transient status so recommend 3 months anticoag moderate clot burden Still symptomatic ?TB: clinical suspicion not that high, but falls in high risk demographic AFB X 3 T spot ID following Awaiting results recent pneumonia: cxr w resolution of infiltrate. No need for abx. proph: anticoagulated cachexia: ensure w meals dispo: inpt Subjective: Still with SOB and hemoptysis. He is feeling slightly better. Objective: Vital Signs Temp Pulse Resp BP Pulse Ox 36.4 C 73 16 132/66 H 99 12/02/16 08:00 12/02/16 08:00 12/02/16 08:00 12/02/16 08:00 12/02/16 08:00 Microbiology 11/30/16 18:40 - Final Sputum, Expectorated Laboratory Results 12/02/16 04:20 12/02/16 04:20 12/01/16 12/02/16 12/03/16 05:59 05:59 05:59 Intake Total 800 Output Total 625 Balance 175 PT 14.0 SEC (12.0-15.0) 12/01/16 05:00 INR 1.09 (0.83-1.16) 12/01/16 05:00 - Physical Exam Constitutional: no apparent distress, appears nourished Eyes: PERRL, EOMI Ears, Nose, Mouth, Throat: moist mucous membranes, hearing normal Cardiovascular: regular rate and rhythym, no murmur, rub, or gallop, No JVD Respiratory: no respiratory distress, reduced air movement Gastrointestinal: normoactive bowel sounds, soft, non-tender abdomen, no palpable masses Skin: warm, normal color Neurologic: AAOx3 Psychiatric: interacting appropriately, not anxious ICD10 Worksheet Patient Problems: Problems Problem Status Onset Hemoptysis Acute Pulmonary emboli Acute Pneumonia Acute Right ankle pain Acute Stroke Acute
[2016-12-02 11:17] LABS: INR 1.25 (0.83-1.16); PROTIME(PATIENT) 15.7 SEC (12.0-15.0)
[2016-12-02] MEDS: WARFARIN SODIUM 5 MG TAB PO SCH (18:40)
[2016-12-03 04:55] LABS: INR 1.24 (0.83-1.16); PROTIME(PATIENT) 15.6 SEC (12.0-15.0)
--- NOTE | 2016-12-03 09:28 | PCMIDPN ---
Assessment/Plan: 1. Pulmonary cavitary lesions in homeless patient: Needs 3rd and final sputum collected to be removed from isolation. Unfortunately, TB IGRA was quantity not sufficient. These tests are not run on the weekend. Will plant PPD instead. HIV negative. Subjective: 1st AFB on the sputum was negative, 2nd is pending. 3rd to be collected today. Patient is afebrile. Objective: Vital Signs Temp Pulse Resp BP Pulse Ox 36.7 C 72 16 131/72 H 92 12/03/16 06:41 12/03/16 06:41 12/03/16 06:41 12/03/16 06:41 12/03/16 06:41 Microbiology 12/01/16 14:50 Mycobacterial Smear (HANK) - Final Sputum, Expectorated 11/30/16 18:40 - Final Sputum, Expectorated Sputum Culture - Final Laboratory Results 12/02/16 04:20 12/02/16 04:20 12/02/16 12/03/16 12/04/16 05:59 05:59 05:59 Intake Total 500 Output Total 650 Balance -150 HIV negative, TB IgRA was "Q NS" ICD10 Worksheet Patient Problems: Problems Problem Status Onset Hemoptysis Acute Pulmonary emboli Acute Pneumonia Acute Right ankle pain Acute Stroke Acute
[2016-12-03] MEDS ORDERED: TUBERCULIN (PPD) 5 TU/0.1 ML SYRINGE ID ONE (09:30)
[2016-12-03] MEDS: ENOXAPARIN 60 MG/0.6 ML SYR SC SCH ×2 (10:57→21:56)
--- NOTE | 2016-12-03 13:56 | HOSPPROG ---
Hospitalist Progress Note Assessment/Plan: Needs 3rd and final sputum collected to be removed from isolation. Unfortunately, TB IGRA was quantity not sufficient. These tests are not run on the weekend. Will plant PPD instead. HIV negative. First encounter with this patient. This is a 61 yo homeless M w b/l pe, rul cavitary lesion and concern for TB. D/W Dr Garzon. PE: provoked given recent hospitalization LMWH and warfarin. Pharmacy dosing warfarin not ideal anticoag candidate given transient status so recommend 3 months anticoag moderate clot burden Still symptomatic ?TB: clinical suspicion not that high, but falls in high risk demographic Needs 3rd and final sputum collected to be removed from isolation. Unfortunately, TB IGRA was quantity not sufficient. These tests are not run on the weekend. Will plant PPD instead. HIV negative. AFB X 3 Appreciate ID following Awaiting results recent pneumonia: cxr w resolution of infiltrate. No need for abx. proph: anticoagulated cachexia: ensure w meals dispo: inpt has an apartment Subjective: Up at edge of bed. Still feels weak and having cough. No pain currently. Objective: Vital Signs Temp Pulse Resp BP Pulse Ox 36.7 C 72 16 131/72 H 92 12/03/16 06:41 12/03/16 06:41 12/03/16 06:41 12/03/16 06:41 12/03/16 06:41 Microbiology 12/01/16 14:50 Mycobacterial Smear (HANK) - Final Sputum, Expectorated 11/30/16 18:40 - Final Sputum, Expectorated Sputum Culture - Final Laboratory Results 12/02/16 04:20 12/02/16 04:20 12/02/16 12/03/16 12/04/16 05:59 05:59 05:59 Intake Total 500 Output Total 650 Balance -150 PT 15.6 SEC (12.0-15.0) H 12/03/16 04:20 INR 1.24 (0.83-1.16) H 12/03/16 04:20 - Physical Exam Constitutional: not in pain, chronically ill appearing, cachectic Eyes: PERRL, anicteric sclera, EOMI Ears, Nose, Mouth, Throat: moist mucous membranes, hearing normal, ears appear normal Cardiovascular: No JVD, No tachycardia, No edema Respiratory: no respiratory distress, no rales or rhonchi, reduced air movement Gastrointestinal: No tenderness, No ascites, No guarding Skin: warm, normal color, No induration Musculoskeletal: no joint effusions, muscular tenderness, generalized weakness Neurologic: AAOx3 Psychiatric: not anxious, not encephalopathic, poor insight, poor judgement ICD10 Worksheet Patient Problems: Problems Problem Status Onset Hemoptysis Acute Pulmonary emboli Acute Pneumonia Acute Right ankle pain Acute Stroke Acute
[2016-12-03] MEDS ORDERED: WARFARIN SODIUM 5 MG TAB PO SCH (16:00)
[2016-12-04 05:17] LABS: INR 1.41 (0.83-1.16); PROTIME(PATIENT) 17.2 SEC (12.0-15.0)
[2016-12-04 07:56] VITALS: TEMP 98.1
--- NOTE | 2016-12-04 08:40 | PCMIDPN ---
Assessment/Plan: 1. Pulmonary cavitary lesions in homeless patient: For unclear reasons his 3rd sputum was not collected yesterday. I ordered it for today. Needs 1 more to be discharged from isolation. I really think this will not be tuberculosis. 12/04/16 08:39 Subjective: No overnight events. Objective: Vital Signs Temp Pulse Resp BP Pulse Ox 36.7 C 86 18 137/72 H 94 12/04/16 07:55 12/04/16 07:55 12/04/16 07:55 12/04/16 07:55 12/04/16 07:55 Microbiology 12/02/16 Unknown Mycobacterial Smear (HANK) - Final Sputum, Induced/Suctioned 12/02/16 12:40 Mycobacterial Smear (HANK) - Final Sputum, Expectorated Laboratory Results 12/02/16 04:20 12/02/16 04:20 12/03/16 12/04/16 12/05/16 05:59 05:59 05:59 Intake Total 500 Output Total 650 Balance -150 ICD10 Worksheet Patient Problems: Problems Problem Status Onset Hemoptysis Acute Pulmonary emboli Acute Pneumonia Acute Right ankle pain Acute Stroke Acute
[2016-12-04] MEDS: ENOXAPARIN 60 MG/0.6 ML SYR SC SCH ×2 (08:57→21:53)
--- NOTE | 2016-12-04 09:44 | HOSPPROG ---
Hospitalist Progress Note Assessment/Plan: This is a 61 yo homeless M w b/l pe, rul cavitary lesion and concern for TB. D/ W Dr Garzon. PE: provoked given recent hospitalization LMWH and warfarin. Pharmacy dosing warfarin not ideal anticoag candidate given transient status so recommend 3 months anticoag moderate clot burden Still symptomatic ?TB: clinical suspicion not that high, but falls in high risk demographic Needs 3rd and final sputum collected to be removed from isolation. Unfortunately, TB IGRA was quantity not sufficient. These tests are not run on the weekend. Will plant PPD instead. HIV negative. AFB X 3 Appreciate ID following Awaiting results recent pneumonia: cxr w resolution of infiltrate. No need for abx. proph: anticoagulated cachexia: ensure w meals dispo: inpt has an apartment Subjective: Not feeling well. No specific issues. Objective: Vital Signs Temp Pulse Resp BP Pulse Ox 36.7 C 86 18 137/72 H 94 12/04/16 07:55 12/04/16 07:55 12/04/16 07:55 12/04/16 07:55 12/04/16 07:55 Microbiology 12/02/16 Unknown Mycobacterial Smear (HANK) - Final Sputum, Induced/Suctioned 12/02/16 12:40 Mycobacterial Smear (HANK) - Final Sputum, Expectorated Laboratory Results 12/02/16 04:20 12/02/16 04:20 12/03/16 12/04/16 12/05/16 05:59 05:59 05:59 Intake Total 500 Output Total 650 Balance -150 PT 17.2 SEC (12.0-15.0) H 12/04/16 04:22 INR 1.41 (0.83-1.16) H 12/04/16 04:22 - Physical Exam Constitutional: chronically ill appearing, cachectic Eyes: PERRL, anicteric sclera Ears, Nose, Mouth, Throat: moist mucous membranes, hearing normal Cardiovascular: No JVD, No edema Respiratory: no respiratory distress, reduced air movement Gastrointestinal: No tenderness, No ascites Skin: warm, normal color Musculoskeletal: no joint effusions, generalized weakness Neurologic: AAOx3 Psychiatric: not anxious, not encephalopathic, thought process linear ICD10 Worksheet Patient Problems: Problems Problem Status Onset Stroke Acute Right ankle pain Acute Pneumonia Acute Hemoptysis Acute Pulmonary emboli Acute
[2016-12-04] MEDS ORDERED: WARFARIN SODIUM 7.5 MG TAB PO ONE (16:00)
[2016-12-04 22:33] VITALS: PULSE 80
[2016-12-05 07:28] VITALS: BP 122/69; RESP 18; O2SAT 92
[2016-12-05] MEDS: ENOXAPARIN 60 MG/0.6 ML SYR SC SCH (10:08)
--- NOTE | 2016-12-05 12:04 | PCMIDPN ---
Assessment/Plan: 1. Pulmonary cavitary lesions in homeless patient: 3 AFB smears are now negative. Isolation can be discontinued. Infectious Disease will sign off. Please call with any questions. Thank you. Objective: Vital Signs Temp Pulse Resp BP Pulse Ox 36.7 C 80 18 122/69 H 92 12/05/16 07:27 12/05/16 07:27 12/05/16 07:27 12/05/16 07:27 12/05/16 07:27 Microbiology 12/04/16 14:50 Mycobacterial Smear (HANK) - Final Sputum, Induced/Suctioned Laboratory Results 12/02/16 04:20 12/02/16 04:20 ICD10 Worksheet Patient Problems: Problems Problem Status Onset Hemoptysis Acute Pulmonary emboli Acute Pneumonia Acute Right ankle pain Acute Stroke Acute
--- NOTE | 2016-12-05 12:59 | GDS ---
[f rep st] DISCHARGE SUMMARY DISCHARGE DIAGNOSES: 1. Pulmonary cavitary lesions. 2. Pulmonary emboli. CONSULTATIONS: Infectious Disease. STUDIES AND PROCEDURES DONE: 1. AFB smears for evaluation. 2. CT angio of the chest. PHYSICAL EXAMINATION: GENERAL: The patient is alert. VITAL SIGNS: Afebrile at 36.7, pulse is 80, respiratory rate is 18, blood pressure is 122/69, saturating 92% on room air. I have seen and eval uated the patient on the day of discharge. HOSPITAL COURSE: The patient is a 61-year-old male, who presented to the hospital with complaints o f shortness of breath and chest discomfort. He was evaluated and diagnosed with: 1. Pulmonary emboli. During this hospitalization, he was treated with warfarin as well as low mole cular weight heparin. He will continue this bridge in the outpatient setting as well as his oral an ticoagulation and follow up at [facility] for an INR in 2-3 days and continue chronic anticoagu lation therapy. Given the patient's transient status, it is recommended that he be treated with ant icoagulation for 3-6 months after disposition. 2. Pulmonary cavitary lesions. During this hospitalization, the patient was evaluated for tubercul osis. 3 AFB smears have been negative. He did receive a consultation from Infectious Disease. It is felt that he is safe to be discharged into the community with no diagnosis of tuberculosis. DISPOSITION: The patient will be discharged from the hospital today. Followup will be at [facility] in 2 days with an INR evaluation. DISCHARGE MEDICATIONS: He has been provided a prescription for Lovenox as well as Coumadin. I have discussed the patient's disposition with Dr. Garzon. She is in agreement with this plan. I s pent greater than 35 minutes in the care, coordination, and management of this patient's discharge. /[id number]/MODL
--- NOTE | 2016-12-05 13:24 | PDIAF ---
- Diagnosis Diagnosis: pe Code Status: Full Code - Medication Management Discharge Medications: Medications to Continue on Transfer Acetaminophen [Tylenol 325mg (*)] 650 mg PO Q4HRS PRN #0 tab 12/05/16 [Last Taken Unknown] Enoxaparin [Lovenox 60 MG (*)] 60 mg SC BID #6 syr 12/05/16 [Last Taken Unknown] Warfarin Sodium [Coumadin] 7.5 mg PO DAILY #30 tablet 12/05/16 [Last Taken Unknown] Discharge Medications: Refer to the Discharge Home Medication list for PRN reason. PICC Care - Routine: N/A - Orders Services needed: Home Care, Registered Nurse, Physical Therapy Home Care Face to Face: I certify that this patient was under my care and that I had the required [id number] encounter meeting the encounter requirements on the discharge day. My findings support the fact that the patient is homebound as defined in CMS Chapter 7 Medicare Benefits Manual 30.1.1, The condition of the patient is such that there exists a normal inability to leave home and consequently, leaving home would require a considerable and taxing effort. Diet Texture: Regular Texture Diet, Thin Liquids, Meds Whole w/Liquids - Labs/Radiology PT/INR Date: 12/07/16 - Follow Up Care Current Providers and Referrals: NONE *PRIMARY CARE P,. [Primary Care Provider] - As per Instructions
== END 2016-12-05 15:05 | disposition home health service (06) | DRG 176 ==
LOC: F3E 17:35 → UNDODISIN 12-04 17:12
PROVIDERS: ADMIT Internal Medicine; ATTEND Internal Medicine
DX: I26.99 Other pulmonary embolism without acute cor pulmonale (principal); J98.4 Other disorders of lung; R64 Cachexia; I69.351 Hemiplegia and hemiparesis following cerebral infarction affecting right dominant side; F17.210 Nicotine dependence, cigarettes, uncomplicated; Z87.01 Personal history of pneumonia (recurrent); Z59.0 Homelessness
CPT/HCPCS: 85520-90; 92610-GN; 96365; 97116-GP; 97162-GP; 97166-GO; 97535-GO; J1644; J1650; J1956; Q9967